=== PATIENT | male | born 1945 | race African-American/Black ===

== ENCOUNTER 2016-09-19 10:26 | Inpatient (IN) ==
[2016-09-19] MEDS ORDERED: SODIUM CHLORIDE 0.9% 1,000 ML IV STA (10:52)
[2016-09-19] MEDS ORDERED: ASPIRIN 300 MG SUPP RECTAL STA (10:52)
--- NOTE | 2016-09-19 11:01 | Emergency Department Note ---
Mesfin Michel Meredith, am scribing for, and in the presence of, Asael Hansen MD 10: 56. Jade Michel James D, MD, personally performed the services described in this documentation, ascribed by Marquita Toure in my presence, and it is both accurate and complete 058 . Arrival - Arrival Chief Complaint: Neuro Stated Complaint: FEEL LIKE HAVING A STROKE ED Nursing Triage Note: PT REPORTS SUDDEN ONSET OF LEFT SIDED NUMBNESS YESTERDAY AT 1999, CAUSING PT TO FALL DOWN. PT STATES NUMBNESS NEVER WENT AWAY. PT USING LEFT ARM/HAND PRIMARILY TO MAKE GESTURES AND TALK AT TRIAGE. NO SLURRED SPEECH OR FACIAL DROOP NOTED. Mode of Arrival: Wheelchair Limitations: No Limitations Source: Patient, Old Records Reviewed, RN Notes Reviewed Time Seen by Provider: 09/19/16 10:46 - History of Present Illness HPI Narrative: Pt is a 70 y/o black male reporting to the ED with c/o sudden onset left-sided weakness/numbness last night at 1999 which caused him to fall. He denies loss of consciousness. Last known well time was 2000 hrs. yesterday. The weakness/ numbness has improved some since last night but is still altering his ambulation , prompting his visit today. He confirms drinking 2-3 18 oz beers daily and drinking whisky 1-2 times a week. Pt has a history of HTN, HLD, and gout. Onset (ago): hour(s) Consistency: constant Severity: moderate Quality: other (weakness and numbness) Allergies/Adverse Reactions: Allergies Allergy/AdvReac Type Severity Reaction Status Date / Time No Known Allergies Allergy Verified 09/19/16 10:39 Review of System - Review of System 12 point system: reviewed and no additional remarkable complaints except as stated - Review of System Neurological: Present: as per HPI, weakness (left-sided), numbness (left-sided) , abnormal gait (due to weakness/numbness) Medical,Surgical,& Family Hx - Medical History Cardio: History of: Hypertension Endocrine: History of: Dyslipidemia Rheumatology: History of;: Gout - Surgical History Thoracic Surgeries: Patient denies;: Lobectomy - Family History Family History: Denies;: Additional Family History - Social History Smoking Status: Current every day smoker Frequency of Alcohol Use: Frequently Type of Drug Use: None Exam Physical Examination: GENERAL: This is a well-nourished, well-developed black male in no apparent distress. VITAL SIGNS: Temperature: 98.4, Pulse: 91, Respirations: 18, Blood pressure: 174 /127, O2 Saturation: 98 HEENT: Head is normocephalic and atraumatic. Pupils are equally round and reactive to light. Extraocular movement are intact. Oropharynx is benign with moist mucous membranes. NECK: Neck is soft and supple without tenderness. There are no masses. There is no lymphadenopathy. LUNGS: Lungs are clear to auscultation bilaterally. Chest rises symmetrically. There is no chest wall tenderness. CV: Heart is regular rate and rhythm without murmurs, rubs, or gallops. ABDOMEN: Abdomen is soft, non-tender to palpation. There are no abnormal masses palpated. There is no organomegaly. Bowel sounds are present and active. SKIN: Skin is warm and dry. No rash. EXTREMITIES: Patient has full range of motion without tenderness. There is no pedal edema. NEUROLOGIC: Awake, alert, and oriented x4. Cranial nerves II through XII are grossly intact. Pt has 2/5 strength in the left arm and 5/5 in the left leg. Some decreased sensation to light touch in the left arm. PSYCHIATRIC: Normal affect. Normal mood. Vital Signs: Vital Signs Temperature 98.4 F 09/19/16 10:33 Pulse Rate 73 09/19/16 11:45 Respiratory Rate 18 09/19/16 11:45 Blood Pressure 189/107 09/19/16 11:45 O2 Sat by Pulse Oximetry 100 09/19/16 11:45 Course - Consultations Consultation #1: Discussed with hospitalist. Patient will be admitted to their service. Time: 12:05 Results - Labs CBC & BMP: 09/19/16 10:52 09/19/16 10:52 Lab Results: I have reviewed the patients labs Labs: Laboratory Tests 09/19/16 09/19/16 10:52 11:06 WBC 6.2 RBC 3.76 L Hgb 11.3 L Hct 33.5 L Plt Count 276 MPV 9.4 L POC Glucose 106 Laboratory Tests 09/19/16 10:52 INR 1.0 PT Patient/Control Mix 10.0 Circ Anticoag PTT 25.2 Laboratory Tests 09/19/16 09/19/16 10:52 10:52 Sodium 145 Potassium 3.8 Chloride 113 H Carbon Dioxide 22 BUN 13 Creatinine 0.80 ALT 15 L Alkaline Phosphatase 133 H Troponin I < 0.015 Globulin 3.6 H Serum Alcohol < 15 L Laboratory Tests 09/19/16 10:52 Urine pH 5.0 Ur Specific [place] 1.012 Urine Urobilinogen < 2.0 H Urine WBC <1 Ur Squamous Epith Cells Occasional Urine Mucus Occasional Laboratory Tests 09/19/16 10:52 Urine Opiates Screen Negative Ur Barbiturates Screen Negative Ur Phencyclidine Scrn Negative U Amphetamine/Methamph Negative U Benzodiazepines Scrn Negative U Cocaine Metab Screen Positive H U Cannabinoids Screen Positive H - EKG EKG results: interpreted by ERMD - Impressions EKG: Normal sinus rhythm with rate of 69, normal ST-T waves, normal axis. - Diagnostic Findings Procedure: Chest x-ray: image reviewed by me (Hyperinflation bilaterally. No cardiomegaly, no infiltrates, no pleural effusions.), CT: image reviewed by me ( CT head: 1.2 x 3 cm area of mass effect left of the falx in the left frontoparietal region most likely extra-axial, most likely a menigioma. ) Disposition Clinical Impression: Stroke, Essential (primary) hypertension, Dyslipidemia, Cocaine abuse, Marijuana abuse, Meningioma Case discussed with: patient Disposition: Still a Patient Condition: Stable Time of Disposition: 12:06
[2016-09-19 11:09] LABS: Basophils % 0.5 % (0.0-0.8); Eosinophils # 0.1 10*3/uL (0.0-0.87); Eosinophils % 1.3 % (0.00-10.9); Hematocrit 33.5 VOL% (42.0-52.0); Hemoglobin 11.3 GM/DL (14.0-18.0); Immature Granulocytes % 0.5 %; Immature Granulocytes Absolute 0.03 #; Lymphocytes # 2.9 10*3/uL (1.4-4.0); Lymphocytes % 46.1 % (21.2-54.2); Mean Corpuscular HGB Conc 33.7 GM/DL (32-36); Mean Corpuscular Hemoglobin 30 PG (27-34); Mean Corpuscular Volume 89.1 FL (87-102); Mean Platelet Volume 9.4 FL (9.6-12.0); Monocytes # 0.4 10*3/uL (0.11-0.8); Monocytes % 6.5 % (1.7-12.7); Neutrophils # 2.8 10*3/uL (1.4-7.4); Neutrophils % 45.1 % (38.7-73.9); Platelet Count 276 10*3/uL (130-400); Red Blood Count 3.76 10*6/uL (3.8-5.5); Red Cell Distribution Width 13.7 % (9.3-17.3); White Blood Count 6.2 10*3/uL (4.5-13.71)
--- NOTE | 2016-09-19 11:13 | EKG Report ---
Stationary ECG Study [facility] ER Test Date: 09/19/2016 11:12:27 AM Pat Name: JOSEMANUEL TORRES Department: Room: Gender: M Copying Machine Repairer: : 1945 Requested by: Asael Mae Order Number: [id number] Reading MD: IRINA LOPEZ Intervals [place] Rate: 69 P: 56 SC: 161 QRS: 33 QRSD: 86 T: 51 QT: 368 QTc: 386 Interpretive Statements SINUS RHYTHM Electronically Signed On 09-19-16 12:15:49 FIELD [employer]Y MANAGER by IRINA LOPEZ [email or web address]
[2016-09-19] MEDS ORDERED: ASPIRIN 300 MG SUPP RECTAL ONE (11:16)
--- NOTE | 2016-09-19 11:16 | CT Report ---
History is hemiparesis The ventricles and the liver size There is a 2 x 3 cm area of soft tissue density and the patchy hyperdensity likely calcification to the left side of the falx anteriorly. This is most likely extra-axial. There may be some minimal adjacent vasogenic edema in the subcortical white matter of the left frontoparietal region. Been no acute hemorrhage or other areas of mass effect seen No acute cortical stroke seen Impression: 1. 2 x 3 cm area of mass effect left of the falx in the left frontoparietal region most likely extra-axial, most likely a meningioma. confirmation with either MRI or any available prior studies is necessary. PROCEDURE INTERPRETED AT [facility] DEPARTMENT OF RADIOLOGY Final Report Signed by: Dr. Larissa Bullard
[2016-09-19 11:19] LABS: Partial Thromboplastin Time 25.2 SECS (0-40)
--- NOTE | 2016-09-19 11:19 | XRay Report ---
History is hemiparesis, cardiomegaly Comparison 01/21/2012 The heart is at the upper range normal in size. Right hilar contours with the rounded density of the spine medially on the right and posteriorly on the lateral film is unchanged likely related to osteophyte. Other large osteophytes present elsewhere No new infiltrates are seen. Impression: Stable appearance of the chest PROCEDURE INTERPRETED AT [facility] DEPARTMENT OF RADIOLOGY Final Report Signed by: Dr. Larissa Bullard
[2016-09-19 11:34] LABS: Alanine Aminotransferase 15 U/L (16-61); Alkaline Phosphatase 133 U/L (45-117); Aspartate Amino Transferase 27 U/L (0-37); Bilirubin,Total < 0.39 MG/DL (0.2-1.0); Blood Urea Nitrogen 13 MG/DL (7-18); Calcium 8.9 MG/DL (8.5-10.1); Glucose 86 MG/DL (74-106); Osmolality,Calculated 286.7 MOS/KG (273-304); Potassium 3.8 MMOL/L (3.5-5.1); Sodium 145 MMOL/L (136-145); Total Protein 7.6 G/DL (6.4-8.3)
[2016-09-19 11:40] LABS: Apearance,Urine CLEAR (Clear); Bilirubin,Urine Negative (Negative); Blood, Urine Negative (Negative); Glucose,Urine (UA) Negative (Negative); Ketones,Urine Negative (Negative); Mucus,Urine Occasional /LPF (Occasional); Nitrite,Urine Negative (Negative); Protein,Urine Negative; Squamous Epithelial Cell,Urine Occasional /HPF (0-10); Urine Color Yellow (Yellow); Urine Specific Gravity 1.012 (1.001-1.035); Urine Urobilinogen < 2.0 EU/DL (0.2-1.0); WBC,Urine <1 /HPF (0-6)
[2016-09-19 11:46] LABS: Barbiturates Screen,Urine Negative (Negative); Benzodiazepines Screen,Urine Negative (Negative); Cannabinoid Screen,Urine Positive (Negative); Opiate Screen,Urine Negative (Negative); Phencyclidine Screen,Urine Negative (Negative)
[2016-09-19] MEDS ORDERED: ACETAMINOPHEN 325 MG TABLET PO PRN (12:23)
[2016-09-19] MEDS ORDERED: ONDANSETRON 4 MG/2 ML VIAL IV PRN (12:23)
[2016-09-19] MEDS ORDERED: LABETALOL 20 MG/4 ML SYRINGE IV PRN (12:23)
--- NOTE | 2016-09-19 12:52 | Hospitalist History & Physical ---
Assessment and Plan - Time spent with patient Time spent with patient: Greater than 30 minutes (due to assessment, plan and documentation.) (1) Stroke Status: Acute Assessment and plan: admit to monitored bed echo, carotid u/s, MRI brain neuro checks ST/PT/OT Consult Case Mgmt for rehab placement Neuro Consultation VTE prophylaxis A1c, lipids, troponin, cbc, bmp, and UDS Labetalol PRN for BP control norvasc 10 mg PO daily started as well Current Visit: Yes (2) Cocaine abuse Status: Acute Current Visit: Yes (3) Dyslipidemia Status: Acute Current Visit: Yes (4) Essential (primary) hypertension Status: Acute Current Visit: Yes (5) Marijuana abuse Status: Acute Current Visit: Yes (6) Meningioma Status: Acute Current Visit: Yes History of Present Illness Chief complaint: left sided weakness. History of present illness: Mr. Montague is a 70 year old male who presented to the ED today with complaints of left sided weakness that began last night about 7-8 pm. He is accompanied by a female family member and she states that last night he was having difficulty speaking, dizziness and severe left sided weakness resulting in a fall. This morning, he continues to be weak on the left side, and states that he has a "tingling" sensation from his waist up. He states that his equilibrium is "off" today. Denies headache or vomiting, but does feel nauseated occasionally. He has a hx of HTN and HLD, but denies a hx of diabetes, CHF or atrial fibrillation. He states that he is supposed to take 1 BP pill in the morning and 1 at night, but that he takes both in the morning. He states that he has been compliant with this. He states that he took his medication this morning. BP at time of interview is 183/100. He smokes 1/3-1/4 of a cigar a day , drinks 3 beers a day and whiskey shots 1-2 days a week. He denies drug use but his UDS is positive for cocaine and marijuana. CT head in ER revealed " no acute hemorrhage, or mass effect, 2x3 cm area of mass effect of the left of the falx in the frontoparietal region , most likely a meningioma". He denies a family hx of CVA, PR, or malignancy, but hx is positive for HTN. He denies a personal hx of CVA, PR, DVT/PE, or malignancy. He will be admitted to a monitored bed for close observation of his rhythm, bedside swallowing eval, neuro checks, VTE prophylaxis, consult Case Management for rehab placement, ST/ PT/OT, Neruo consultation. We will also obtain MRI brain and carotids, as well as an echo. Labs today and in AM. He lives at home and typically functions independently. Further plan and addendum to follow by Dr. Jelena Rolon. Allergies Allergy/AdvReac Type Severity Reaction Status Date / Time No Known Allergies Allergy Verified 09/19/16 10:39 Medical,Surgical,& Family Hx - Medical History Cardio: History of: Hypertension Endocrine: History of: Dyslipidemia Rheumatology: History of;: Gout - Surgical History Thoracic Surgeries: Patient denies;: Lobectomy - Family History Family History: Reports;: Family Hypertension Denies;: Family Cancer, Family Diabetes, Family Heart Disease, Family Stroke , Additional Family History - Social History Smoking Status: Current every day smoker Frequency of Alcohol Use: Frequently Type of Drug Use: Cocaine (UDS +), Marijuana (UDS +) Marital Status: Unknown Lives With:: Alone Functional capacity: independent ambulation - Constitutional Constitutional: Present: weakness. Absent: chills, fatigue, headache(s) - EENT Eyes: Absent: blurry vision, diplopia Ears: Absent: decreased hearing, tinnitus Nose, mouth and throat: Present: vertigo. Absent: dysphagia, headache(s) - Cardiovascular Cardiovascular: Absent: chest pain at rest, dyspnea on exertion, palpitations - Respiratory Respiratory: Absent: cough, dyspnea, hemoptysis - Gastrointestinal Gastrointestinal: Present: nausea. Absent: abdominal pain, melena, vomiting - Genitourinary Genitourinary: Absent: difficulty urinating, hematuria - Musculoskeletal Musculoskeletal: Absent: back pain, joint swelling - Neurological Neurological: Present: disequilibrium, dizziness. Absent: confusion - Psychiatric Psychiatric: Absent: anxiety, confusion, depression - Endocrine Endocrine: Absent: cold intolerance, heat intolerance - Hematologic/Lymphatic Hematologic/Lymphatic: Absent: easy bleeding, easy bruising Exam - Constitutional Vitals: Period Temp Pulse Resp BP Sys/Sheffield Pulse Ox Last 24 Hr 98.4 F 73-91 18-18 174-192/107-127 98-100 General appearance: normal weight, no acute distress - Head Head exam: Present: normal inspection, normocephalic - Eye Eye exam: Present: EOMI. Absent: scleral icterus Pupils: Present: MIKE, normal accommodation - ENT ENT exam: Present: normal exam, normal oropharynx - Neck Neck exam: Present: normal inspection. Absent: lymphadenopathy - Respiratory Respiratory exam: Present: clear to auscultation bilaterally. Absent: accessory muscle use - Cardiovascular Cardiovascular exam: Present: regular rate and rhythm. Absent: carotid bruit - GI/Abdominal GI/Abdominal exam: Present: normal bowel sounds, soft. Absent: tenderness - Extremities Exam Extremities exam: Present: normal inspection. Absent: edema - Back Exam Back exam: Present: normal inspection. Absent: muscle spasm - Neurological Exam Neurological exam: Present: alert, oriented X3, CN II-XII intact, reflexes normal. Absent: motor sensory deficit - Psychiatric Psychiatric exam: Present: normal affect, normal mood - Skin Skin exam: Present: normal color, warm, dry, intact Results - Labs CBC & BMP: 09/19/16 10:52 09/19/16 10:52 Lab Results: I have reviewed the past 24 hour labs - Diagnostic Findings Procedure: Chest x-ray: report reviewed by me (negative), CT: report reviewed by me (2 x 3 cm area of mass effect of the falx in the left frontoparietal region, most likely a meningioma. MRI recommended. ) Quality Measures - VTE Contraindication to Pharmacological VTE Prophylaxis: High Risk of Bleeding - Stroke Onset of Symptoms Date: 09/18/16 Onset of Symptoms Time: 19:00 Symptom Onset Unknown: No
--- NOTE | 2016-09-19 13:35 | Ultrasound Report ---
History is CVA Grayscale, spectral Doppler, and color flow analysis performed and interpreted There is a mild amount of partly soft plaque in both proximal internal carotid arteries Maximum systolic velocities 88 in the right and the 90 on the left Peak systolic ratios of 0.8 on the right and 0.9 left There is antegrade flow in both vertebral arteries Impression: Mild amount of plaque with less than 50% diameter stenoses bilaterally by NASCET criteria PROCEDURE INTERPRETED AT [facility] DEPARTMENT OF RADIOLOGY Final Report Signed by: Dr. Larissa Bullard
[2016-09-19] MEDS ORDERED: LORazepam 2 MG/1 ML VIAL IV PRN (13:55)
[2016-09-19] MEDS: amLODIPine 10 MG TABLET PO SCH (14:50)
[2016-09-19] MEDS: chlordiazePOXIDE 10 MG CAPSULE PO SCH ×3 (14:51→22:08)
[2016-09-19] MEDS: SODIUM CHLORIDE 0.9% 1,000 ML IV SCH (14:57)
[2016-09-19] MEDS: LISINOPRIL 20 MG TABLET PO SCH ×2 (15:16→22:08)
[2016-09-19 15:19] LABS: Cholesterol 112 MG/DL (50-200); HDL Cholesterol 72 MG/DL (40-60); Risk Ratio 1.56; Triglycerides 141 MG/DL (2-150); Troponin I Only < 0.015 NG/ML (0.00-0.045); VLDL CHOLESTEROL 28.2 MG/DL
[2016-09-19] MEDS: ALBUTEROL/IPRATROPIUM 3 ML NEB RESP TX SCH ×2 (16:34→20:12)
--- NOTE | 2016-09-19 16:38 | Event Note ---
pt gone for MRI
--- NOTE | 2016-09-19 16:40 | Magnetic Resonance Report ---
Exam: MR head/brain wo con Date: 09/19/2016 12:30 PM Comparison: None Indication: Stroke question mass Technical: 1.5 Sumi magnet Axial T1 pre-and , ADC, DWI, FLAIR, gradient echo and FSE T2 Sagittal no images obtained. Coronal FSE T2 Contrast:0 cc Dotarem Findings: Exam reveals abnormal ADC/ diffusion imaging involving the high left frontal lobe medially with bright signal on the diffusion imaging and dark signal on the ADC image.. The brainstem, cerebellum exhibit normal signal characteristics. The cerebral hemispheres reveal small vessel changes suspected in the periventricular and subcortical white matter regions also noted. The ventricles or demonstrated without significant enlargement or mass effect. The seventh and eighth cranial nerves and cerebral pontine angles are intact. The pituitary gland, infundibulum and optic chiasm are intact. The paranasal sinuses exhibit inflammation in the left ethmoid air cells. The remaining paranasal sinuses exhibit normal signal characteristics. The mastoid sinuses are unremarkable. The globes and intra-and extraconal spaces are unremarkable. Impression: 1. Infarction involving the high medial left frontal lobe suspected 2. Small vessel ischemic changes. 3. Left ethmoid sinusitis PROCEDURE INTERPRETED AT [facility] DEPARTMENT OF RADIOLOGY Final Report Signed by: Dr. Richar Gimenez
[2016-09-19] MEDS: IBUPROFEN 800 MG TABLET PO PRN (17:22)
[2016-09-19] MEDS ORDERED: LISINOPRIL 20 MG TABLET PO SCH (21:00)
[2016-09-19] MEDS: METOPROLOL TARTRATE 50 MG TABLET PO SCH (22:08)
[2016-09-19] MEDS: GEMFIBROZIL 600 MG TABLET PO SCH (22:08)
[2016-09-20] MEDS: LATANOPROST 0.005% OPH SOLN 2.5 ML BOTTLE BOTH EYES SCH ×2 (01:18→22:04)
[2016-09-20] MEDS: SODIUM CHLORIDE 0.9% 1,000 ML IV SCH ×3 (06:48→20:07)
[2016-09-20] MEDS: ALBUTEROL/IPRATROPIUM 3 ML NEB RESP TX SCH ×4 (07:16→20:45)
[2016-09-20] MEDS: THIAMINE 100 MG TABLET PO SCH (08:30)
[2016-09-20] MEDS: GEMFIBROZIL 600 MG TABLET PO SCH ×2 (08:30→21:58)
[2016-09-20] MEDS: MULTIVITAMIN (CENTRUM) TABLET PO SCH (08:30)
[2016-09-20] MEDS: amLODIPine 10 MG TABLET PO SCH (08:31)
[2016-09-20] MEDS: LISINOPRIL 20 MG TABLET PO SCH (08:31)
[2016-09-20] MEDS: chlordiazePOXIDE 10 MG CAPSULE PO SCH ×4 (08:31→21:59)
[2016-09-20] MEDS: METOPROLOL TARTRATE 50 MG TABLET PO SCH ×2 (08:31→21:58)
[2016-09-20] MEDS: ALLOPURINOL 100 MG TABLET PO SCH (08:31)
[2016-09-20] MEDS: ASPIRIN EC 325 MG TABLET PO SCH (08:31)
[2016-09-20] MEDS: FOLIC ACID 1 MG TABLET PO SCH (08:31)
[2016-09-20] MEDS: PANTOPRAZOLE 40 MG TABLET PO SCH (08:31)
[2016-09-20] MEDS ORDERED: ASPIRIN 300 MG SUPP RECTAL SCH (09:00)
[2016-09-20] MEDS ORDERED: diphenhydrAMINE 50 MG/1 ML VIAL IV ONE (11:10)
[2016-09-20] MEDS: IBUPROFEN 800 MG TABLET PO PRN ×2 (11:17→18:27)
--- NOTE | 2016-09-20 11:19 | Hospitalist Progress Note ---
Assessment and Plan (1) Stroke Status: Acute Assessment and plan: 1)acute stroke- MRI brain with acute stroke in left frontal region, at odds with exam that has left body weakness. His poor balance has resolved her reports , but now has new findings in his face. Dr Rodriguez to see. PT and OT today. Carotids ok. Echo pending. LDL 36, tchol 112. 2)alcohol dependence- on librium, no sign of withdrawal. 3)cocaine and marijuana abuse- he denies thsi, but UDS positive. 4)HTN- BP controlled on Norvasc, lisinopril, metoprolol. Current Visit: Yes (2) Essential (primary) hypertension Status: Acute Current Visit: Yes (3) Dyslipidemia Status: Acute Current Visit: Yes (4) Cocaine abuse Status: Acute Current Visit: Yes (5) Marijuana abuse Status: Acute Current Visit: Yes (6) Meningioma Status: Acute Current Visit: Yes Hospitalist: Subjective Interval history: Mr Montague reported when I was him this morning that he was doing well. His strength had returned to his hand and he thought he would be able to walk today. He would like to go home. His MRI showed high medial left frontal lobe infarct. After I had evaluated him this morning he reported a headache. His nurse thinks his left face is a little swollen and the left side of his top lip. He has received Benadryl and I will reevaluate. He has not had tremors or other alcohol withdrawal symptoms. Exam - Constitutional Vitals: Period Temp Pulse Resp BP Sys/[place] Pulse Ox Last 24 Hr 97.8 F-98.9 F 68-90 16-18 122-184/74-103 97-100 General appearance: normal weight, no acute distress - Head Head exam: Present: normocephalic, atraumatic - Eye Eye exam: Present: EOMI. Absent: scleral icterus Pupils: Present: MIKE - ENT ENT exam: Present: normal exam - Respiratory Respiratory exam: Present: clear to auscultation bilaterally - Cardiovascular Cardiovascular exam: Present: regular rate and rhythm - GI/Abdominal GI/Abdominal exam: Present: normal bowel sounds, soft. Absent: tenderness - Extremities Exam Extremities exam: Absent: edema - Neurological Exam Neurological exam: Present: alert, oriented X3, CN II-XII intact. Absent: motor sensory deficit (testing of strength and sensation in left arm and leg negative in bed- has walked in lyman) - Skin Skin exam: Present: warm, dry Results - Labs CBC & BMP: 09/19/16 10:52 09/19/16 10:52 Lab Results: I have reviewed the past 24 hour labs Quality Measures - VTE Contraindication to Pharmacological VTE Prophylaxis: High Risk of Bleeding - Stroke Onset of Symptoms Date: 09/18/16 Onset of Symptoms Time: 19:00 Symptom Onset Unknown: No
[2016-09-20] MEDS ORDERED: methylPREDNISolone SOD SUC 125 MG/2 ML VIAL IV ONE (11:49)
[2016-09-20] MEDS ORDERED: methylPREDNISolone SOD SUC 125 MG/2 ML VIAL IV SCH (12:00)
[2016-09-20] MEDS: diphenhydrAMINE 50 MG/1 ML VIAL IV SCH ×2 (12:05→18:30)
--- NOTE | 2016-09-20 13:00 | Neurology Consult Note ---
History of Present Illness History of present illness: Mr. Montague is a 70 year old -[place] gentleman who presented to the ED today with complaints of right sided weakness that began the night before the admission about 7-8 pm. A family member states that he was having difficulty speaking, dizziness and severe right sided weakness resulting in a fall. He continued to have some weakness in the right side but he is a lot better. He is able to get up and walk. Denies headache or vomiting, but does feel nauseated occasionally. He has a hx of HTN and HLD, but denies a hx of diabetes , CHF or atrial fibrillation. He states that he is supposed to take 1 BP pill in the morning and 1 at night, but that he takes both in the morning. He states that he has been compliant with this. He states that he took his medication this morning. BP at time of interview is 183/100. He smokes 1/3-1/4 of a cigar a day, drinks 3 beers a day and whiskey shots 1-2 days a week. He denies drug use but his UDS is positive for cocaine and marijuana. CT head in ER revealed no acute abnormality but revealed a small frontoparietal meningioma. MRI of the brain revealed subacute to acute left high parietal infarct. He is also developed left facial swelling which is sudden in onset and likely due to lisinopril. Home Medications Medication Instructions Recorded Confirmed Type Allopurinol 100 mg PO DAILY 09/19/16 09/19/16 History Gemfibrozil 600 mg PO BID 09/19/16 09/19/16 History Ibuprofen 800 mg PO TID PRN 09/19/16 09/19/16 History Latanoprost [Latanoprost 0.005 % 1 drop BOTH EYES BEDTIME 09/19/16 09/19/16 History Oph Soln] Metoprolol Tartrate 50 mg PO BID 09/19/16 09/19/16 History Multivitamin with Minerals [One 1 each PO DAILY 09/19/16 09/19/16 History Daily Plus Minerals] Allergies Allergy/AdvReac Type Severity Reaction Status Date / Time lisinopril [From Prinivil] Allergy Severe Swelling Verified 09/20/16 12:17 of Lip/Tongue/Throat 12 point system: reviewed and no additional remarkable complaints except as stated Medical,Surgical,& Family Hx - Medical History Cardio: History of: Hypertension Endocrine: History of: Dyslipidemia Rheumatology: History of;: Gout Respiratory: History of: Asthma - Surgical History Thoracic Surgeries: Patient denies;: Lobectomy - Family History Family History: Reports;: Family Hypertension Denies;: Family Anesthesia Reaction, Family Cancer, Family Diabetes, Family Heart Disease, Family Hematology, Family Psychiatric Problems, Family Stroke, Additional Family History - Social History Smoking Status: Current every day smoker Frequency of Alcohol Use: Frequently Type of Drug Use: Cocaine, Marijuana Exam - Constitutional Vitals: Period Temp Pulse Resp BP Sys/Sheffield Pulse Ox Last 24 Hr 97.8 F-98.9 F 68-90 16-18 122-184/74-103 97-100 Exam: GENERAL: Patient is in no acute distress. NECK: Neck is supple. There is no JVD. No carotid bruits present. No thyroid masses. CVS: First and second heart sounds are normal. There is no S3 present. Regular rate and rhythm. RESPIRATORY: Lungs are clear to auscultation without any rales or rhonchi. ABDOMEN: Soft and non-tender. Bowel sounds are present. There is no hepatosplenomegaly. EXT: There is no palpable edema. Peripheral pulses are present. Skin: No rashes Central Nervous system: General: Alert, awake and Oriented x 3 Speech: Fluent Comprehension: Intact and normal Facial expressions: Left facial swelling due to end edema Cranial Nerves: CN1/Olfactory: Normal CN II/ Optic: Normal, Visual Mcdonough unreliable CN III, and : MIKE & EOMI CN V: Normal & intact CN VII: face is symmetric CNVIII: Normal CN XI/X/XI/XII: Intact and Normal Motor: Bulk and Tone is normal. Strength in the right 4/5 Strength in the left 5/5 Sensory: Grossly intact for all the modalities of PP, LT and temp sense Reflexes: 1+ and symmetrical Cerebellar function: Normal finger to nose and heel to gomez testing. Gait: Able to get up and walk Results - Labs CBC & BMP: 09/19/16 10:52 09/19/16 10:52 Assessment and Plan (1) Stroke Status: Acute Assessment and plan: Continue aspirin a day. Patient does not need inpatient rehabilitation. Current Visit: Yes (2) Essential (primary) hypertension Status: Acute Assessment and plan: This is quite stable now. Continue current medications. Current Visit: Yes (3) Cocaine abuse Status: Acute Assessment and plan: Counseling done Current Visit: Yes (4) Marijuana abuse Status: Acute Assessment and plan: Counseling done regarding cessation of marijuana use Current Visit: Yes (5) Meningioma Status: Acute Assessment and plan: This is asymptomatic. Current Visit: Yes
--- NOTE | 2016-09-20 14:31 | Consultation ---
Assessment and Plan - Time spent with patient Time spent with patient: Greater than 30 minutes (1) Angioedema Status: Acute Assessment and plan: Clinical exam reveals this is largely isolated to the left maxillofacial soft tissue with no floor of mouth swelling or hardness and no anterior two thirds of the tongue swelling no change in speech or difficulty breathing or swallowing. Bedside laryngoscopy surprisingly revealed a very posterior placed base of tongue with a narrow supraglottic airway with mild to moderate edema though no clinical signs. I discussed this with Dr. Rolon and let her know that I would recommend close observation of this and would have a very short leash for intubation if there is any question of difficulty or progression. I reviewed the medicine and I feel the steroids and Benadryl are completely reasonable additionally we may add Zantac or an H2 ofelia of some sort as that may add some benefit. With his history and comorbidities I do not recommend epi unless the case showed cardiovascular compromise secondary to a worsening or progression of his angioedema. I doubt any of the above will be needed as it seems that this is the peak of the swelling and there should be a steady resolution from this time on. I will sign off on this case but I do remain available if there is any questions or concerns the family sooner than later if there appears to be an airway concerned though I would recommend intubation with any concerns that would be brought up. Current Visit: Yes (2) Left facial swelling Status: Acute Current Visit: Yes History of Present Illness - Data of Consult Patient: new to practice Consult date: 09/20/16 Requesting Physician: Hebert Rodriguez - Consult Narrative Reason for consult: Angioedema History of present illness: Mr. Montague is a 70 year old male who was in the hospital for left-sided weakness and was recently started on lisinopril and developed facial and soft tissue swelling and lisinopril was immediately discontinued and steroids and Benadryl was appropriately started. He is noted no changes or difficulty breathing or swallowing throughout this time and no recollection of any oral tingling or difficulties. ENT is consulted to evaluate CC: Jelena Rolon MD - Home Medications and Allergies Home Medications: Home Medications Medication Instructions Recorded Confirmed Type Allopurinol 100 mg PO DAILY 09/19/16 09/19/16 History Gemfibrozil 600 mg PO BID 09/19/16 09/19/16 History Ibuprofen 800 mg PO TID PRN 09/19/16 09/19/16 History Latanoprost [Latanoprost 0.005 % 1 drop BOTH EYES BEDTIME 09/19/16 09/19/16 History Oph Soln] Metoprolol Tartrate 50 mg PO BID 09/19/16 09/19/16 History Multivitamin with Minerals [One 1 each PO DAILY 09/19/16 09/19/16 History Daily Plus Minerals] Allergies/Adverse Reactions: Allergies Allergy/AdvReac Type Severity Reaction Status Date / Time lisinopril [From Prinivil] Allergy Severe Swelling Verified 09/20/16 12:17 of Lip/Tongue/Throat 12 point system: reviewed and no additional remarkable complaints except as stated Medical,Surgical,& Family Hx - Medical History Cardio: History of: Hypertension Endocrine: History of: Dyslipidemia Rheumatology: History of;: Gout Respiratory: History of: Asthma - Surgical History Thoracic Surgeries: Patient denies;: Lobectomy - Family History Family History: Reports;: Family Hypertension Denies;: Family Anesthesia Reaction, Family Cancer, Family Diabetes, Family Heart Disease, Family Hematology, Family Psychiatric Problems, Family Stroke, Additional Family History - Social History Smoking Status: Current every day smoker Frequency of Alcohol Use: Frequently Type of Drug Use: Cocaine, Marijuana Exam - Constitutional Vitals: Period Temp Pulse Resp BP Sys/[place] Pulse Ox Last 24 Hr 97.8 F-98.9 F 68-91 16-18 122-158/74-90 97-100 General appearance: normal weight, no acute distress - Head Head exam: Present: other (Left sided facial swelling surprisingly isolated to the left side only and predominantly the maxillofacial area consistent with angioedema) - Eye Eye exam: Present: EOMI Pupils: Present: MIKE - ENT ENT exam: Present: normal exam, normal external ear exam, normal oropharynx, other (Bedside laryngoscopy was performed and surprisingly showed a posterior base of tongue with a minimal supraglottic airway secondary to anatomy and mild to moderate edema of the tongue and larynx though the patient reports no difficulty with breathing or swallowing he also has a surprisingly leftward deviated trachea and larynx from an unknown reason and 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) - Neck Neck exam: Present: normal inspection - Respiratory Respiratory exam: Present: other (No tachypnea or difficulty breathing) - GI/Abdominal GI/Abdominal exam: Present: soft - Extremities Exam Extremities exam: Present: normal inspection, normal capillary refill - Neurological Exam Neurological exam: Present: alert, oriented X3, CN II-XII intact - Psychiatric Psychiatric exam: Present: normal affect, normal mood - Skin Skin exam: Present: normal color, warm Results - Labs CBC & BMP: 09/19/16 10:52 09/19/16 10:52 Lab Results: I have reviewed the past 24 hour labs - Diagnostic Findings Procedure: CT: report reviewed by me (No evidence from yesterday CT of an underlying left sinusitis that could be exacerbating or an underlying cause) Quality Measures - VTE Contraindication to Pharmacological VTE Prophylaxis: High Risk of Bleeding - Stroke Onset of Symptoms Date: 09/18/16 Onset of Symptoms Time: 19:00 Symptom Onset Unknown: No
[2016-09-20] MEDS: FAMOTIDINE 20 MG TABLET PO SCH ×2 (18:28→21:58)
--- NOTE | 2016-09-20 22:15 | ECHO Report ---
Rigo Montagueha Exam Date: 09/20/2016 09:35 Referring Physician: Technologist: Mason NOWAK Age: 70 Ht (in): Wt (lb): Gender: M Exam Location: [facility] Echo Indications: weakness, stroke, HTN, dyslipidemia BP: / HR: Rhythm: Sinus Technical Quality: Poor IMPRESSIONS Normal LV systolic function, ejection fraction 65%. Grade 1/4 diastolic dysfunction. Mild concentric left ventricular hypertrophy. Mild mitral and tricuspid regurgitation. MEASUREMENTS (Male / Female) Normal Values 2D ECHO LV Diastolic Diameter PLAX 2.8 cm 4.2 - 5.9 / 3.9 - 5.3 cm LV Systolic Diameter PLAX 2.0 cm LV Fractional Shortening PLAX 29.2 % IVS Diastolic Thickness 1.2 cm 0.6 - 1.0 / 0.6 - 0.9 cm LVPW Diastolic Thickness 1.3 cm 0.6 - 1.0 / 0.6 - 0.9 cm RV Internal Dim ED PLAX 2.4 cm Aortic Root Diameter 2.3 cm LA Systolic Diameter LX 2.9 cm 3.0 - 4.0 / 2.7 - 3.8 cm DOPPLER TR Peak Velocity 189.0 cm/s TR Peak Gradient 14.3 mmHg FINDINGS Left Ventricle Mildly increased septal wall thickness. Mild concentric left ventricular hypertrophy. Left ventricular ejection fraction is estimated at 65%. Right Ventricle Normal right ventricular size. Right Atrium Normal right atrial size. Left Atrium Normal left atrial size. Mitral Valve Mildly thickened mitral valve with mild mitral regurgitation. Aortic Valve Aortic valve sclerosis without stenosis or regurgitation. Tricuspid Valve Morphologically normal tricuspid valve. Mild tricuspid valve regurgitation. Tricuspid regurgitation velocities suggest a PAP of 14.3 mmHg + RAP. Pulmonic Valve Not well seen. Pericardium No pericardial effusion. Aorta Normal size aortic root and proximal ascending aorta. Monica Lee MD (Electronically Signed) Final Date: 20 September 2016 22:14
[2016-09-20] MEDS: methylPREDNISolone SOD SUC 125 MG/2 ML VIAL IV SCH (23:19)
[2016-09-21] MEDS: diphenhydrAMINE 50 MG/1 ML VIAL IV SCH ×2 (00:37→06:11)
[2016-09-21] MEDS: ALBUTEROL/IPRATROPIUM 3 ML NEB RESP TX SCH ×4 (09:00→20:46)
[2016-09-21] MEDS: MULTIVITAMIN (CENTRUM) TABLET PO SCH (09:09)
[2016-09-21] MEDS: THIAMINE 100 MG TABLET PO SCH (09:09)
[2016-09-21] MEDS: amLODIPine 10 MG TABLET PO SCH (09:09)
[2016-09-21] MEDS: ASPIRIN EC 325 MG TABLET PO SCH (09:10)
[2016-09-21] MEDS: chlordiazePOXIDE 10 MG CAPSULE PO SCH ×5 (09:10→21:11)
[2016-09-21] MEDS: METOPROLOL TARTRATE 50 MG TABLET PO SCH ×2 (09:11→21:10)
[2016-09-21] MEDS: GEMFIBROZIL 600 MG TABLET PO SCH ×2 (09:11→21:10)
[2016-09-21] MEDS: FOLIC ACID 1 MG TABLET PO SCH (09:11)
[2016-09-21] MEDS: PANTOPRAZOLE 40 MG TABLET PO SCH (09:12)
[2016-09-21] MEDS: FAMOTIDINE 20 MG TABLET PO SCH ×2 (09:12→21:10)
[2016-09-21] MEDS: ALLOPURINOL 100 MG TABLET PO SCH (09:12)
[2016-09-21] MEDS: IBUPROFEN 800 MG TABLET PO PRN ×2 (09:13→13:09)
[2016-09-21] MEDS: SODIUM CHLORIDE 0.9% 1,000 ML IV SCH ×2 (09:15→17:25)
--- NOTE | 2016-09-21 10:48 | Hospitalist Progress Note ---
Assessment and Plan (1) Angioedema Status: Acute Assessment and plan: Impression: #1. Angioedema, likely drug induced #2. Cerebral infarction #3. Hypertension Plan: It appears that we can move the patient to the floor at this time. We will continue current care otherwise. We discussed medication allergies. May be able to discharge in the next day or so, assuming that he continues to improve. This note was completed using [employer] voice recognition software. There may be tooling engineer errors as a result. Current Visit: Yes Hospitalist: Subjective Interval history: Follow-up angioedema and cerebral infarction. The patient says that the swelling in his lips and cheeks has improved. He denies any dyspnea or change in his voice. He thinks that he is ready to move out to a room. Exam - Constitutional Vitals: Period Temp Pulse Resp BP Sys/Sheffield Pulse Ox Last 24 Hr 98.0 F-99.4 F 79-150 15-23 117-155/63-128 98-100 Blood pressure is adequate. He has some facial edema and edema of the lips. Tongue appears to be normal size. Voice quality is back to baseline. There is no stridor or wheeze. Heart is regular with no murmur or gallop. Lungs are clear with no rales. Results - Labs CBC & BMP: 09/19/16 10:52 09/19/16 10:52 Quality Measures - VTE Contraindication to Pharmacological VTE Prophylaxis: High Risk of Bleeding - Stroke Onset of Symptoms Date: 09/18/16 Onset of Symptoms Time: 19:00 Symptom Onset Unknown: No
--- NOTE | 2016-09-21 11:29 | Progress Note ---
Assessment and Plan (1) Angioedema Status: Acute Assessment and plan: Clinical exam reveals this is largely isolated to the left maxillofacial soft tissue with no floor of mouth swelling or hardness and no anterior two thirds of the tongue swelling no change in speech or difficulty breathing or swallowing. Bedside laryngoscopy surprisingly revealed a very posterior placed base of tongue with a narrow supraglottic airway with mild to moderate edema though no clinical signs. I discussed this with Dr. Rolon and let her know that I would recommend close observation of this and would have a very short leash for intubation if there is any question of difficulty or progression. I reviewed the medicine and I feel the steroids and Benadryl are completely reasonable additionally we may add Zantac or an H2 ofelia of some sort as that may add some benefit. With his history and comorbidities I do not recommend epi unless the case showed cardiovascular compromise secondary to a worsening or progression of his angioedema. I doubt any of the above will be needed as it seems that this is the peak of the swelling and there should be a steady resolution from this time on. I will sign off on this case but I do remain available if there is any questions or concerns the family sooner than later if there appears to be an airway concerned though I would recommend intubation with any concerns that would be brought up. 09/21/2016 The patient's angioedema has progressed to bilateral but overall I would say is lessened and there is been no evidence of oropharyngeal difficulties and 24 hours which is a good sign it is unlikely this will progress much more and I feel that in the near future he would be safe to move to the floor. I will sign off on this case and not continue to follow on the please notify me if there is any continued difficulties or new onset changes or worsening the patient condition. Thank you very much for this consult Current Visit: Yes (2) Left facial swelling Status: Acute Current Visit: Yes Family Medicine PN Sub Interval history: Follow-up from yesterday's angioedema the swelling has advanced to bilateral but decreased some on the left side he has noted no additional oropharyngeal or laryngeal complications which is encouraging. Exam (Progress Note) - Constitutional Vitals: Period Temp Pulse Resp BP Sys/Sheffield Pulse Ox Last 24 Hr 98.0 F-99.4 F 79-150 15-23 117-155/63-128 98-100 General appearance: normal weight, no acute distress - Head Head exam: Present: other (Bilateral soft tissue facial edema consistent with angioedema new onset on the right side decreasing in size and side) - Eye Eye exam: Present: EOMI Pupils: Present: MIKE - ENT ENT exam: Present: normal exam, normal external ear exam, normal oropharynx - Neck Neck exam: Present: normal inspection, other (No swelling noted) - Respiratory Respiratory exam: Present: other (No tachypnea or difficulty breathing) - GI/Abdominal GI/Abdominal exam: Present: soft - Neurological Exam Neurological exam: Present: alert, oriented X3 - Psychiatric Psychiatric exam: Present: normal affect, normal mood - Skin Skin exam: Present: normal color, warm Results - Labs CBC & BMP: 09/19/16 10:52 09/19/16 10:52 Lab Results: I have reviewed the past 24 hour labs Quality Measures - VTE Contraindication to Pharmacological VTE Prophylaxis: High Risk of Bleeding - Stroke Onset of Symptoms Date: 09/18/16 Onset of Symptoms Time: 19:00 Symptom Onset Unknown: No
[2016-09-21] MEDS: methylPREDNISolone SOD SUC 125 MG/2 ML VIAL IV SCH ×2 (11:37→22:44)
[2016-09-21] MEDS: LATANOPROST 0.005% OPH SOLN 2.5 ML BOTTLE BOTH EYES SCH (21:11)
[2016-09-22] MEDS: ALBUTEROL/IPRATROPIUM 3 ML NEB RESP TX SCH ×4 (08:05→19:15)
[2016-09-22] MEDS: amLODIPine 10 MG TABLET PO SCH (09:19)
[2016-09-22] MEDS: PANTOPRAZOLE 40 MG TABLET PO SCH (09:19)
[2016-09-22] MEDS: FAMOTIDINE 20 MG TABLET PO SCH ×2 (09:19→20:02)
[2016-09-22] MEDS: chlordiazePOXIDE 10 MG CAPSULE PO SCH ×4 (09:19→20:02)
[2016-09-22] MEDS: METOPROLOL TARTRATE 50 MG TABLET PO SCH ×2 (09:19→20:01)
[2016-09-22] MEDS: ALLOPURINOL 100 MG TABLET PO SCH (09:19)
[2016-09-22] MEDS: ASPIRIN EC 325 MG TABLET PO SCH (09:19)
[2016-09-22] MEDS: GEMFIBROZIL 600 MG TABLET PO SCH ×2 (09:19→20:01)
[2016-09-22] MEDS: FOLIC ACID 1 MG TABLET PO SCH (09:19)
[2016-09-22] MEDS: MULTIVITAMIN (CENTRUM) TABLET PO SCH (09:19)
[2016-09-22] MEDS: THIAMINE 100 MG TABLET PO SCH (09:19)
[2016-09-22] MEDS: SODIUM CHLORIDE 0.9% 1,000 ML IV SCH (09:20)
[2016-09-22] MEDS: methylPREDNISolone SOD SUC 125 MG/2 ML VIAL IV SCH (10:21)
--- NOTE | 2016-09-22 16:49 | Hospitalist Progress Note ---
Assessment and Plan (1) Angioedema Status: Acute Assessment and plan: Impression: #1. Angioedema, likely drug induced #2. Cerebral infarction #3. Hypertension Plan: I'll add a low-dose of clonidine for his blood pressure. He should be ready for discharge in the morning, assuming that his angioedema continues to improve. This note was completed using [employer] voice recognition software. There may be negative restorer errors as a result. Current Visit: Yes Hospitalist: Subjective Interval history: We're following the patient for cerebral infarction, hypertension, and angioedema from his converting enzyme inhibitor. The patient continues with some facial swelling. He again reports no problems with his upper airway. He is still very concerned about the blood pressure, and continues to complain of a headache. In addition, he reports worsening anxiety and nervousness surrounding the episode. He says that his neurologic symptoms have improved. Exam - Constitutional Vitals: Period Temp Pulse Resp BP Sys/Sheffield Pulse Ox Last 24 Hr 97.6 F-98.5 F 74-103 18-18 134-150/77-91 95-100 Blood pressure looks like it's better. He still has some facial edema, not much different than yesterday. Heart is regular with no murmur or gallop. Lungs are clear with no rales or wheezes. I don't hear any stridor in the upper airway. He is ambulatory in the room. Results - Labs CBC & BMP: 09/19/16 10:52 09/19/16 10:52 Quality Measures - VTE Contraindication to Pharmacological VTE Prophylaxis: High Risk of Bleeding - Stroke Onset of Symptoms Date: 09/18/16 Onset of Symptoms Time: 19:00 Symptom Onset Unknown: No
[2016-09-22] MEDS: cloNIDine 0.1 MG TABLET PO SCH (20:04)
[2016-09-22] MEDS: LATANOPROST 0.005% OPH SOLN 2.5 ML BOTTLE BOTH EYES SCH (20:31)
[2016-09-23] MEDS: SODIUM CHLORIDE 0.9% 1,000 ML IV SCH ×3 (01:16→11:23)
[2016-09-23] MEDS: ALBUTEROL/IPRATROPIUM 3 ML NEB RESP TX SCH ×2 (06:51→10:26)
[2016-09-23] MEDS: ALLOPURINOL 100 MG TABLET PO SCH (09:22)
[2016-09-23] MEDS: chlordiazePOXIDE 10 MG CAPSULE PO SCH (09:22)
[2016-09-23] MEDS: amLODIPine 10 MG TABLET PO SCH (09:22)
[2016-09-23] MEDS: GEMFIBROZIL 600 MG TABLET PO SCH (09:22)
[2016-09-23] MEDS: FAMOTIDINE 20 MG TABLET PO SCH (09:22)
[2016-09-23] MEDS: MULTIVITAMIN (CENTRUM) TABLET PO SCH (09:22)
[2016-09-23] MEDS: ASPIRIN EC 325 MG TABLET PO SCH (09:22)
[2016-09-23] MEDS: PANTOPRAZOLE 40 MG TABLET PO SCH (09:22)
[2016-09-23] MEDS: cloNIDine 0.1 MG TABLET PO SCH (09:22)
[2016-09-23] MEDS: THIAMINE 100 MG TABLET PO SCH (09:22)
[2016-09-23] MEDS: FOLIC ACID 1 MG TABLET PO SCH (09:22)
[2016-09-23] MEDS: METOPROLOL TARTRATE 50 MG TABLET PO SCH (09:52)
--- NOTE | 2016-09-23 11:25 | Discharge Summary ---
Hospital Course - Hospital Course Hospital Course: 70-year-old -[place] male presents to the emergency room with complaints of left-sided weakness. Patient is a known alcoholic and drinks on a daily basis. CT of his head showed a small meningioma that has probably been there for years. Patient was started on an aspirin. MRI shows infarct in the high medial left frontal lobe. Patient is relatively asymptomatic and carotid ultrasound shows less than 50% stenosis. Echocardiogram EF of 65% and no diastolic dysfunction. Patient has chronic COPD and breathing better with duo nebs then with inhalers. Patient had a complicated course as he developed angioedema secondary to lisinopril. This is completely resolved and patient is feeling good. We will taper him off the Librium and give him [place] for as needed back pain. As he is taking ibuprofen 3 times a day. His stomach feels better after being on Protonix. [facility] be [facility] - Time spent with patient Time with patient DS: Less than 30 minutes Discharge Plan - Discharge Data Disposition: Disch To Home/Self Care Condition at Discharge: Stable Discharge Diet: heart healthy Activity: resume usual activities as tolerated Hygiene: no restrictions Weight Bearing at Discharge: full weight bearing Driving: other (no driving while on librium or norco) - Discharge Medications New Folic Acid Tab 1 mg PO DAILY tablet Pantoprazole Tab [Protonix Tab] 40 mg PO DAILY #30 tablet Thiamine Tab [Vitamin B1 Tab] 100 mg PO DAILY tablet amLODIPine [Norvasc] 10 mg PO DAILY #30 tablet cloNIDine TAB [Catapres Tab] 0.1 mg PO BID #60 tablet Albuterol/Ipratropium Neb [Duoneb] 3 ml RESP TX TID #90 nebulization solution HYDROcodone/ACETAMIN 5-325 [[place] 5-325] 1 tablet PO Q6H PRN #20 tablet PRN Reason: Pain Moderate (4-7) chlordiazePOXIDE [Librium] 10 mg PO DAILY #6 capsule Aspirin EC Tab 325 mg PO DAILY #30 tablet Continue Latanoprost [Latanoprost 0.005 % Oph Soln] 1 drop BOTH EYES BEDTIME Allopurinol 100 mg PO DAILY Gemfibrozil 600 mg PO BID Multivitamin with Minerals [One Daily Plus Minerals] 1 each PO DAILY Metoprolol Tartrate 50 mg PO BID Discontinued Ibuprofen 800 mg PO TID PRN PRN Reason: Pain - Follow Up or Referral Follow Up: Dr. Wendi [Other] - 2 Weeks - Forms/Instructions Exam - Constitutional Vitals: Period Temp Pulse Resp BP Sys/Sheffield Pulse Ox Last 24 Hr 97.5 F-98.5 F 71-90 8-23 123-150/72-97 98-100 Exam: Heart Rate-[RRR] Lungs-[CTAB] Abd-[+bs soft, NT] Ext-[no edema] Tongue no edema or facial swelling DS: Provider Date of admission: 09/19/16 12:10 Primary care physician: . No PCP Attending physician on admission: Jelena Rolon MD Consults: 09/19/16 12:23 Consult to Case Mgmt/Social Srvs [CONS] Routine Reason for Case Mgmt/Social Srvs: Discharge Planning Consult to Occupational Therapy [CONS] Routine Reason for Occupational Therapy: Evaluate and Treat Consult Comment: Stroke Consult to Physical Therapy [CONS] Routine Reason for Physical Therapy: Evaluate and Treat Consult Comment: stroke Consult to Physician [CONS] Routine Comment: stroke Consulting Provider: Hebert Rodriguez Person Notified: Dr. Rodriguez Date Notified: 09/19/16 Time Notified: 14:29 Consult Notification Comment: 09/19/16 14:03 Consult to Pharmacy [CONS] Routine Reason for Pharmacy Consult: Adjust Meds Renal Funct 09/20/16 12:45 Consult to Physician [CONS] Routine Comment: Consulting Provider: Darrell Martinez Person Notified: Dr. Martinez Date Notified: 09/20/16 Time Notified: 12:53 Discharging clinician: Lluvia Felix MD
[2016-09-23 11:45] VITALS: BP 134/87
== END 2016-09-23 12:40 | disposition home or self-care (01) | DRG 65 ==
LOC: N.ED 10:26 → N.EDINP 12:10 → SUATTDRO 12:10 → N.EDINP 13:40 → N.5E 13:55 → N.CC 09-20 15:59 → N.5E 09-21 12:35
PROVIDERS: ADMIT Internal Medicine; ATTEND Internal Medicine Geriatric Medicine

== ENCOUNTER 2020-09-25 05:46 | Inpatient (IN) ==
[2020-09-20 12:33] LABS: Basophils % 0.4 % (0.0-0.8); Eosinophils # 0.1 10*3/uL (0.0-0.87); Eosinophils % 0.7 % (0.00-10.9); Hematocrit 33.2 VOL% (42.0-52.0); Hemoglobin 9.9 GM/DL (14.0-18.0); Immature Granulocytes % 1.4 %; Immature Granulocytes Absolute 0.13 #; Lymphocytes # 3.7 10*3/uL (1.4-4.0); Lymphocytes % 41.3 % (21.2-54.2); Mean Corpuscular HGB Conc 29.8 GM/DL (32-36); Mean Corpuscular Volume 90.7 FL (87-102); Mean Platelet Volume 9.3 FL (9.6-12.0); Monocytes % 6.4 % (1.7-12.7); Neutrophils % 49.8 % (38.7-73.9); Platelet Count 555 T/CUMM (130-400); Red Blood Count 3.66 MC/CUMM (3.8-5.5); Red Cell Distribution Width 15.9 % (9.3-17.3)
[2020-09-20 12:56] LABS: Calcium 9.7 MG/DL (8.5-10.1); Potassium 4.3 MMOL/L (3.5-5.1)
[2020-09-20 13:21] LABS: Eosinophils 1 % (0-10); Lymphocytes 44 % (20-55); Segmented Neutrophils 47 % (50-85); Total Cells Counted 100
[2020-09-20 13:22] LABS: Anisocytosis 1+; Hypochromasia 1+; Platelet Estimate Adequate; Polychromasia Few; Target Cells Few
[2020-09-20 13:41] LABS: Sedimentation Rate-Westergren 82 MM/HR (0-20)
[2020-09-25] MEDS ORDERED: LACTATED RINGERS 1,000 ML IV SCH (06:00)
[2020-09-25] MEDS ORDERED: ceFAZolin 2,000 MG in PREMIX 1 EACH IV ONE (06:30)
[2020-09-25] MEDS ORDERED: FAMOTIDINE 20 MG TABLET PO ONE (06:54)
[2020-09-25] MEDS ORDERED: GABAPENTIN 400 MG CAPSULE PO ONE (06:54)
[2020-09-25] MEDS ORDERED: ACETAMINOPHEN 500 MG TABLET PO ONE (06:54)
[2020-09-25] MEDS ORDERED: ALBUTEROL 2.5 MG/3 ML NEB RESP TX ONE (06:54)
[2020-09-25] MEDS ORDERED: BUPIVACAINE MPF 0.25% 30 ML VIAL ONE (09:28)
[2020-09-25 09:51] LABS: Bilirubin,Urine Negative (Negative); Blood, Urine Negative (Negative); Calcium Oxalate Crystals,Urine Occasional /HPF (Few); Glucose,Urine (UA) Negative (Negative); Ketones,Urine Negative (Negative); Mucus,Urine Occasional /LPF (Occasional); Nitrite,Urine Negative (Negative); Protein,Urine 30 MG/DL; RBC,Urine 2 /HPF (0-4); Squamous Epithelial Cell,Urine Occasional /HPF (0-10); Urine Appearance CLEAR (Clear); Urine Color Yellow (Yellow); Urine Specific Gravity 1.026 (1.001-1.035); Urine Urobilinogen < 2.0 EU/DL (0.2-1.0); WBC,Urine <1 /HPF (0-6)
[2020-09-25] MEDS ORDERED: fentaNYL 100 MCG/2 ML VIAL ONE (10:06)
[2020-09-25] MEDS ORDERED: ONDANSETRON 4 MG/2 ML VIAL IV PRN ×2 (10:11→13:25)
[2020-09-25] MEDS ORDERED: MAGNESIUM HYDROXIDE SUSP 30 ML UDCUP PO PRN (10:11)
[2020-09-25] MEDS ORDERED: MORPHINE 4 MG/1 ML VIAL IV PRN ×2 (10:11)
[2020-09-25] MEDS ORDERED: VANCOMYCIN 1,000 MG VIAL ONE ×2 (10:14→10:19)
[2020-09-25] MEDS ORDERED: TOBRAMYCIN 1.2 GM VIAL TOP ONE ×2 (10:14→10:19)
[2020-09-25] MEDS ORDERED: PHENYLEPHRINE 10 MG/1 ML VIAL IV ONE (11:00)
[2020-09-25 11:23] LABS: Bacteria,Urine Occasional /HPF (Few); Bilirubin,Urine Negative (Negative); Blood, Urine Negative (Negative); Glucose,Urine (UA) Negative (Negative); Ketones,Urine Negative (Negative); Mucus,Urine Occasional /LPF (Occasional); Nitrite,Urine Negative (Negative); Protein,Urine Negative; RBC,Urine 6 /HPF (0-4); Squamous Epithelial Cell,Urine Occasional /HPF (0-10); Urine Appearance CLEAR (Clear); Urine Color Yellow (Yellow); Urine Specific Gravity 1.028 (1.001-1.035); Urine Urobilinogen < 2.0 EU/DL (0.2-1.0); WBC,Urine <1 /HPF (0-6)
[2020-09-25] MEDS ORDERED: ALBUMIN 5% 12.5 GM/250 ML VIAL IV ONE (12:09)
[2020-09-25] MEDS ORDERED: ePHEDrine 50 MG/ML VIAL ONE (12:32)
[2020-09-25] MEDS ORDERED: FUROSEMIDE 20 MG/2 ML VIAL IV PRN (12:40)
[2020-09-25] MEDS ORDERED: SODIUM CHLORIDE 0.9% 1,000 ML IV PRN (12:40)
[2020-09-25 12:54] LABS: Hematocrit 22.2 VOL% (42.0-52.0)
[2020-09-25 12:56] LABS: Hemoglobin 7.2 GM/DL (14.0-18.0)
[2020-09-25] MEDS ORDERED: SODIUM CHLORIDE 0.9% 250 ML IV ONE (13:10)
[2020-09-25] MEDS ORDERED: DEXAMETHASONE 4 MG/1 ML VIAL ONE (13:10)
[2020-09-25] MEDS ORDERED: PHENYLEPHRINE 1 MG/10 ML SYRINGE IV ONE (13:10)
[2020-09-25] MEDS ORDERED: propofoL 200 MG/20 ML VIAL IV ONE (13:10)
[2020-09-25] MEDS ORDERED: ROCURONIUM 50 MG/5 ML VIAL IV ONE (13:10)
[2020-09-25] MEDS ORDERED: ONDANSETRON 4 MG/2 ML VIAL ONE (13:10)
[2020-09-25] MEDS ORDERED: LIDOCAINE 2% 5 ML VIAL ONE (13:10)
[2020-09-25] MEDS ORDERED: TRANEXAMIC ACID 1,000 MG/10 ML VIAL ONE (13:10)
[2020-09-25] MEDS ORDERED: LACTATED RINGERS 1,000 ML IV ONE (13:10)
[2020-09-25] MEDS ORDERED: SEVOFLURANE 1 UNIT/15 MINUTE INH ONE (13:11)
[2020-09-25] MEDS ORDERED: HYDROmorphone 2 MG/1 ML VIAL ONE (13:27)
[2020-09-25] MEDS: HYDROmorphone 2 MG/1 ML VIAL IV PRN ×2 (13:30→14:30)
[2020-09-25] MEDS ORDERED: SODIUM CHLORIDE 0.9% 500 ML IV ONE (15:29)
[2020-09-25] MEDS: LACTATED RINGERS 1,000 ML IV SCH (15:58)
[2020-09-25] MEDS: LORazepam 1 MG TABLET PO SCH ×2 (17:43→21:59)
[2020-09-25] MEDS: KETOROLAC 15 MG/1 ML VIAL IV SCH (17:46)
[2020-09-25] MEDS: DORZOLAMIDE/TIMOLOL OPH SOLN 10 ML BOTTLE BOTH EYES SCH ×2 (17:51→22:00)
[2020-09-25] MEDS: BRIMONIDINE 0.2% OPH SOLN 5 ML BOTTLE BOTH EYES SCH ×2 (17:51→22:00)
[2020-09-25] MEDS: OXACILLIN 2,000 MG in SODIUM CHLORIDE 0.9% 100 ML IV SCH (19:56)
[2020-09-25] MEDS: DOCUSATE SODIUM 100 MG CAPSULE PO SCH (21:59)
[2020-09-25] MEDS: GABAPENTIN 300 MG CAPSULE PO SCH (21:59)
[2020-09-25] MEDS: CYPROHEPTADINE 4 MG TABLET PO SCH (22:00)
[2020-09-25] MEDS: METOPROLOL TARTRATE 50 MG TABLET PO SCH (22:00)
[2020-09-25] MEDS: LATANOPROST 0.005% OPH SOLN 2.5 ML BOTTLE BOTH EYES SCH (22:00)
[2020-09-25] MEDS: MAGNESIUM OXIDE 400 MG TABLET PO SCH (22:00)
[2020-09-25] MEDS: levETIRAcetam 500 MG TABLET PO SCH (22:00)
[2020-09-26] MEDS: KETOROLAC 15 MG/1 ML VIAL IV SCH ×5 (01:24→18:04)
[2020-09-26] MEDS: LACTATED RINGERS 1,000 ML IV SCH ×3 (02:00→15:30)
[2020-09-26] MEDS: OXACILLIN 2,000 MG in SODIUM CHLORIDE 0.9% 100 ML IV SCH ×4 (02:01→18:07)
[2020-09-26 05:07] LABS: Basophils % 0.2 % (0.0-0.8); Eosinophils % 0.1 % (0.00-10.9); Hematocrit 25.3 VOL% (42.0-52.0); Hemoglobin 8.1 GM/DL (14.0-18.0); Immature Granulocytes Absolute 0.13 #; Lymphocytes # 3.7 10*3/uL (1.4-4.0); Lymphocytes % 28.4 % (21.2-54.2); Mean Platelet Volume 9.1 FL (9.6-12.0); Monocytes % 4.4 % (1.7-12.7); Neutrophils % 65.9 % (38.7-73.9); Platelet Count 320 T/CUMM (130-400); Red Blood Count 2.81 MC/CUMM (3.8-5.5); Red Cell Distribution Width 15.9 % (9.3-17.3); White Blood Count 12.9 T/CUMM (4-12)
[2020-09-26 05:26] LABS: Calcium 7.5 MG/DL (8.5-10.1); Osmolality,Calculated 273.7 MOS/KG (273-304); Potassium 3.9 MMOL/L (3.5-5.1)
[2020-09-26 05:36] LABS: Hypochromasia 1+; Microcytosis 1+; Ovalocytes Slight; Platelet Estimate Adequate
[2020-09-26] MEDS ORDERED: SODIUM CHLORIDE 0.9% 1,000 ML IV PRN (06:59)
[2020-09-26] MEDS ORDERED: FUROSEMIDE 20 MG/2 ML VIAL IV PRN (06:59)
[2020-09-26] MEDS: LORazepam 1 MG TABLET PO SCH ×3 (09:25→22:21)
[2020-09-26] MEDS: DOCUSATE SODIUM 100 MG CAPSULE PO SCH ×2 (09:25→22:21)
[2020-09-26] MEDS: MULTIVITAMIN (BEROCCA) TABLET PO SCH (09:25)
[2020-09-26] MEDS: FOLIC ACID 1 MG TABLET PO SCH (09:26)
[2020-09-26] MEDS: levETIRAcetam 500 MG TABLET PO SCH ×2 (09:26→22:21)
[2020-09-26] MEDS: gemfibroziL 600 MG TABLET PO SCH (09:26)
[2020-09-26] MEDS: GABAPENTIN 300 MG CAPSULE PO SCH ×2 (09:27→22:21)
[2020-09-26] MEDS: MAGNESIUM OXIDE 400 MG TABLET PO SCH ×2 (09:27→22:21)
[2020-09-26] MEDS: PANTOPRAZOLE 40 MG TABLET PO SCH (09:28)
[2020-09-26] MEDS: CYPROHEPTADINE 4 MG TABLET PO SCH ×3 (09:28→22:21)
[2020-09-26] MEDS: THIAMINE 100 MG TABLET PO SCH (09:29)
[2020-09-26] MEDS: allopurinoL 100 MG TABLET PO SCH (09:29)
[2020-09-26] MEDS ORDERED: BENZOCAINE/MENTHOL LOZENGE 18/BOX PO PRN (10:02)
[2020-09-26] MEDS: BRIMONIDINE 0.2% OPH SOLN 5 ML BOTTLE BOTH EYES SCH ×3 (10:34→22:22)
[2020-09-26] MEDS: DORZOLAMIDE/TIMOLOL OPH SOLN 10 ML BOTTLE BOTH EYES SCH ×3 (10:34→22:22)
[2020-09-26] MEDS: METOPROLOL TARTRATE 50 MG TABLET PO SCH (12:01)
[2020-09-26] MEDS: LATANOPROST 0.005% OPH SOLN 2.5 ML BOTTLE BOTH EYES SCH (22:22)
[2020-09-27] MEDS: OXACILLIN 2,000 MG in SODIUM CHLORIDE 0.9% 100 ML IV SCH ×4 (01:14→17:55)
[2020-09-27 01:26] LABS: Hematocrit 32.7 VOL% (42.0-52.0)
[2020-09-27] MEDS: METOPROLOL TARTRATE 50 MG TABLET PO SCH ×3 (02:28→23:10)
[2020-09-27] MEDS: LACTATED RINGERS 1,000 ML IV SCH ×4 (05:10→23:13)
[2020-09-27 08:04] LABS: Basophils % 0.1 % (0.0-0.8); Eosinophils % 0.2 % (0.00-10.9); Hematocrit 33.5 VOL% (42.0-52.0); Hemoglobin 10.9 GM/DL (14.0-18.0); Immature Granulocytes % 0.8 %; Immature Granulocytes Absolute 0.17 #; Lymphocytes # 2.7 10*3/uL (1.4-4.0); Lymphocytes % 13.3 % (21.2-54.2); Mean Corpuscular HGB Conc 32.5 GM/DL (32-36); Mean Corpuscular Volume 89.6 FL (87-102); Mean Platelet Volume 9.2 FL (9.6-12.0); Monocytes % 1.6 % (1.7-12.7); Platelet Count 356 T/CUMM (130-400); Red Blood Count 3.74 MC/CUMM (3.8-5.5); Red Cell Distribution Width 15.6 % (9.3-17.3); White Blood Count 20.5 T/CUMM (4-12)
[2020-09-27 08:24] LABS: Lymphocytes 13 % (20-55); Platelet Estimate Adequate; Segmented Neutrophils 87 % (50-85); Total Cells Counted 100
[2020-09-27 08:25] LABS: Hypochromasia 1+; Microcytosis 1+
[2020-09-27] MEDS: MULTIVITAMIN (BEROCCA) TABLET PO SCH (09:00)
[2020-09-27] MEDS: DOCUSATE SODIUM 100 MG CAPSULE PO SCH ×2 (09:00→22:16)
[2020-09-27] MEDS: LORazepam 1 MG TABLET PO SCH ×3 (09:00→22:16)
[2020-09-27] MEDS: BRIMONIDINE 0.2% OPH SOLN 5 ML BOTTLE BOTH EYES SCH ×3 (09:00→22:17)
[2020-09-27] MEDS: DORZOLAMIDE/TIMOLOL OPH SOLN 10 ML BOTTLE BOTH EYES SCH ×3 (09:01→22:17)
[2020-09-27] MEDS: FOLIC ACID 1 MG TABLET PO SCH (09:01)
[2020-09-27] MEDS: gemfibroziL 600 MG TABLET PO SCH (09:01)
[2020-09-27] MEDS: levETIRAcetam 500 MG TABLET PO SCH ×2 (09:01→22:15)
[2020-09-27] MEDS: MAGNESIUM OXIDE 400 MG TABLET PO SCH ×2 (09:02→22:16)
[2020-09-27] MEDS: PANTOPRAZOLE 40 MG TABLET PO SCH (09:02)
[2020-09-27] MEDS: CYPROHEPTADINE 4 MG TABLET PO SCH ×3 (09:02→22:16)
[2020-09-27] MEDS: GABAPENTIN 300 MG CAPSULE PO SCH ×2 (09:02→22:21)
[2020-09-27] MEDS: allopurinoL 100 MG TABLET PO SCH (09:02)
[2020-09-27] MEDS: THIAMINE 100 MG TABLET PO SCH (09:02)
[2020-09-27] MEDS ORDERED: LIDOCAINE 2% 5 ML VIAL ONE (09:16)
[2020-09-27] MEDS ORDERED: SUCCINYLCHOLINE 200 MG/10 ML VIAL ONE (09:16)
[2020-09-27] MEDS ORDERED: fentaNYL 100 MCG/2 ML VIAL ONE (09:16)
[2020-09-27] MEDS ORDERED: ROCURONIUM 50 MG/5 ML VIAL IV ONE (09:16)
[2020-09-27] MEDS ORDERED: ETOMIDATE 40 MG/20 ML VIAL IV ONE (09:16)
[2020-09-27] MEDS ORDERED: SODIUM CHLORIDE 0.9% 1,000 ML IV PRN ×2 (09:25→12:00)
[2020-09-27] MEDS ORDERED: LACTATED RINGERS 1,000 ML IV SCH (09:30)
[2020-09-27] MEDS ORDERED: ALBUMIN 5% 12.5 GM/250 ML VIAL IV ONE (09:31)
[2020-09-27] MEDS ORDERED: SODIUM CHLORIDE 0.9% 1,000 ML IV ONE (10:12)
[2020-09-27] MEDS ORDERED: propofoL 200 MG/20 ML VIAL IV ONE (10:12)
[2020-09-27] MEDS ORDERED: CALCIUM CHLORIDE 1,000 MG/10 ML VIAL IV ONE (10:12)
[2020-09-27] MEDS ORDERED: METOPROLOL TARTRATE 5 MG/5 ML VIAL IV ONE (10:21)
[2020-09-27] MEDS ORDERED: ESMOLOL 100 MG/10 ML VIAL IV ONE (10:21)
[2020-09-27] MEDS ORDERED: TRANEXAMIC ACID 1,000 MG/10 ML VIAL ONE (10:32)
[2020-09-27] MEDS ORDERED: PHENYLEPHRINE 1 MG/10 ML SYRINGE IV ONE (11:06)
[2020-09-27] MEDS ORDERED: GLYCOPYRROLATE 0.4 MG/2 ML VIAL ONE (11:45)
[2020-09-27] MEDS ORDERED: NEOSTIGMINE 10 MG/10 ML VIAL ONE (11:45)
[2020-09-27] MEDS ORDERED: SEVOFLURANE 1 UNIT/15 MINUTE INH ONE (11:53)
[2020-09-27 13:06] LABS: Basophils % 0.2 % (0.0-0.8); Eosinophils # 0.1 10*3/uL (0.0-0.87); Eosinophils % 0.3 % (0.00-10.9); Hematocrit 29.7 VOL% (42.0-52.0); Hemoglobin 9.5 GM/DL (14.0-18.0); Immature Granulocytes % 0.5 %; Immature Granulocytes Absolute 0.09 #; Lymphocytes # 3.5 10*3/uL (1.4-4.0); Lymphocytes % 21.1 % (21.2-54.2); Mean Corpuscular Volume 89.7 FL (87-102); Mean Platelet Volume 8.9 FL (9.6-12.0); Monocytes % 1.8 % (1.7-12.7); Neutrophils % 76.1 % (38.7-73.9); Platelet Count 304 T/CUMM (130-400); Red Blood Count 3.31 MC/CUMM (3.8-5.5); Red Cell Distribution Width 15.6 % (9.3-17.3); White Blood Count 16.5 T/CUMM (4-12)
[2020-09-27] MEDS: KETOROLAC 30 MG/1 ML VIAL IV SCH ×2 (14:36→17:55)
[2020-09-27 17:58] LABS: Hematocrit 28.1 VOL% (42.0-52.0); Hemoglobin 9.1 GM/DL (14.0-18.0)
[2020-09-27] MEDS: LATANOPROST 0.005% OPH SOLN 2.5 ML BOTTLE BOTH EYES SCH (22:21)
[2020-09-28] MEDS: OXACILLIN 2,000 MG in SODIUM CHLORIDE 0.9% 100 ML IV SCH ×4 (02:06→17:39)
[2020-09-28] MEDS: KETOROLAC 30 MG/1 ML VIAL IV SCH ×2 (02:07→06:11)
[2020-09-28 05:40] LABS: Basophils % 0.3 % (0.0-0.8); Eosinophils # 0.1 10*3/uL (0.0-0.87); Eosinophils % 0.9 % (0.00-10.9); Hematocrit 22.8 VOL% (42.0-52.0); Hemoglobin 7.3 GM/DL (14.0-18.0); Immature Granulocytes % 0.6 %; Immature Granulocytes Absolute 0.08 #; Lymphocytes % 23.8 % (21.2-54.2); Mean Corpuscular Volume 90.1 FL (87-102); Monocytes % 2.9 % (1.7-12.7); Neutrophils % 71.5 % (38.7-73.9); Platelet Count 310 T/CUMM (130-400); Red Blood Count 2.53 MC/CUMM (3.8-5.5); Red Cell Distribution Width 15.6 % (9.3-17.3); White Blood Count 12.7 T/CUMM (4-12)
[2020-09-28 05:59] LABS: Calcium 8.1 MG/DL (8.5-10.1); Osmolality,Calculated 276.4 MOS/KG (273-304); Potassium 3.6 MMOL/L (3.5-5.1)
[2020-09-28] MEDS: FONDAPARINUX 2.5 MG/0.5 ML SYRINGE SUBCUT SCH (06:11)
[2020-09-28 06:41] LABS: Lymphocytes 18 % (20-55); Platelet Estimate Normal; Segmented Neutrophils 80 % (50-85); Total Cells Counted 100
[2020-09-28] MEDS: PANTOPRAZOLE 40 MG TABLET PO SCH (08:38)
[2020-09-28] MEDS: MAGNESIUM OXIDE 400 MG TABLET PO SCH ×2 (08:39→22:14)
[2020-09-28] MEDS: DOCUSATE SODIUM 100 MG CAPSULE PO SCH ×2 (08:39→22:14)
[2020-09-28] MEDS: LORazepam 1 MG TABLET PO SCH ×2 (08:39→22:45)
[2020-09-28] MEDS: CYPROHEPTADINE 4 MG TABLET PO SCH ×3 (08:39→22:14)
[2020-09-28] MEDS: MULTIVITAMIN (BEROCCA) TABLET PO SCH (08:40)
[2020-09-28] MEDS: gemfibroziL 600 MG TABLET PO SCH (08:40)
[2020-09-28] MEDS: allopurinoL 100 MG TABLET PO SCH (08:40)
[2020-09-28] MEDS: METOPROLOL TARTRATE 50 MG TABLET PO SCH ×2 (08:40→22:15)
[2020-09-28] MEDS: THIAMINE 100 MG TABLET PO SCH (08:41)
[2020-09-28] MEDS: FOLIC ACID 1 MG TABLET PO SCH (08:41)
[2020-09-28] MEDS: DORZOLAMIDE/TIMOLOL OPH SOLN 10 ML BOTTLE BOTH EYES SCH ×3 (08:41→22:15)
[2020-09-28] MEDS: levETIRAcetam 500 MG TABLET PO SCH ×2 (08:41→22:14)
[2020-09-28] MEDS: GABAPENTIN 300 MG CAPSULE PO SCH ×2 (08:41→22:15)
[2020-09-28] MEDS: BRIMONIDINE 0.2% OPH SOLN 5 ML BOTTLE BOTH EYES SCH ×3 (08:41→22:15)
[2020-09-28 15:32] LABS: Hematocrit 34.6 VOL% (42.0-52.0); Hemoglobin 11.2 GM/DL (14.0-18.0)
[2020-09-28] MEDS: LATANOPROST 0.005% OPH SOLN 2.5 ML BOTTLE BOTH EYES SCH (22:15)
[2020-09-29] MEDS: OXACILLIN 2,000 MG in SODIUM CHLORIDE 0.9% 100 ML IV SCH ×4 (00:44→18:01)
[2020-09-29] MEDS: FONDAPARINUX 2.5 MG/0.5 ML SYRINGE SUBCUT SCH (06:15)
[2020-09-29 06:58] LABS: Basophils % 0.3 % (0.0-0.8); Eosinophils # 0.1 10*3/uL (0.0-0.87); Hematocrit 31.2 VOL% (42.0-52.0); Immature Granulocytes % 0.7 %; Lymphocytes # 2.9 10*3/uL (1.4-4.0); Lymphocytes % 21.3 % (21.2-54.2); Mean Corpuscular HGB Conc 32.1 GM/DL (32-36); Mean Corpuscular Volume 91.5 FL (87-102); Mean Platelet Volume 9.6 FL (9.6-12.0); Monocytes % 2.7 % (1.7-12.7); Platelet Count 364 T/CUMM (130-400); Red Blood Count 3.41 MC/CUMM (3.8-5.5); Red Cell Distribution Width 14.7 % (9.3-17.3); White Blood Count 13.5 T/CUMM (4-12)
[2020-09-29 07:25] LABS: Calcium 7.6 MG/DL (8.5-10.1); Osmolality,Calculated 279.1 MOS/KG (273-304); Potassium 3.7 MMOL/L (3.5-5.1)
[2020-09-29] MEDS: DORZOLAMIDE/TIMOLOL OPH SOLN 10 ML BOTTLE BOTH EYES SCH ×3 (10:49→21:08)
[2020-09-29] MEDS: MULTIVITAMIN (BEROCCA) TABLET PO SCH (10:50)
[2020-09-29] MEDS: BRIMONIDINE 0.2% OPH SOLN 5 ML BOTTLE BOTH EYES SCH ×3 (10:50→21:07)
[2020-09-29] MEDS: levETIRAcetam 500 MG TABLET PO SCH ×2 (10:51→20:57)
[2020-09-29] MEDS: LORazepam 0.5 MG TABLET PO SCH ×2 (10:51→21:01)
[2020-09-29] MEDS: DOCUSATE SODIUM 100 MG CAPSULE PO SCH ×2 (10:51→20:56)
[2020-09-29] MEDS: CYPROHEPTADINE 4 MG TABLET PO SCH ×3 (10:51→20:59)
[2020-09-29] MEDS: MAGNESIUM OXIDE 400 MG TABLET PO SCH ×2 (10:51→20:58)
[2020-09-29] MEDS: gemfibroziL 600 MG TABLET PO SCH (10:51)
[2020-09-29] MEDS: allopurinoL 100 MG TABLET PO SCH (10:52)
[2020-09-29] MEDS: METOPROLOL TARTRATE 50 MG TABLET PO SCH ×2 (10:52→20:58)
[2020-09-29] MEDS: PANTOPRAZOLE 40 MG TABLET PO SCH (10:52)
[2020-09-29] MEDS: GABAPENTIN 300 MG CAPSULE PO SCH ×2 (10:52→21:01)
[2020-09-29] MEDS: LATANOPROST 0.005% OPH SOLN 2.5 ML BOTTLE BOTH EYES SCH (21:09)
[2020-09-30] MEDS: OXACILLIN 2,000 MG in SODIUM CHLORIDE 0.9% 100 ML IV SCH ×4 (00:09→17:59)
[2020-09-30 05:59] LABS: Basophils # 0.1 10*3/uL (0.0-0.2); Basophils % 0.6 % (0.0-0.8); Eosinophils # 0.2 10*3/uL (0.0-0.87); Eosinophils % 1.8 % (0.00-10.9); Hematocrit 33.7 VOL% (42.0-52.0); Immature Granulocytes % 0.4 %; Immature Granulocytes Absolute 0.04 #; Lymphocytes # 2.7 10*3/uL (1.4-4.0); Mean Corpuscular HGB Conc 32.6 GM/DL (32-36); Mean Corpuscular Volume 90.8 FL (87-102); Mean Platelet Volume 8.8 FL (9.6-12.0); Monocytes % 4.9 % (1.7-12.7); Neutrophils % 62.3 % (38.7-73.9); Platelet Count 393 T/CUMM (130-400); Red Blood Count 3.71 MC/CUMM (3.8-5.5); Red Cell Distribution Width 14.8 % (9.3-17.3)
[2020-09-30] MEDS: FONDAPARINUX 2.5 MG/0.5 ML SYRINGE SUBCUT SCH (06:14)
[2020-09-30] MEDS ORDERED: LORazepam 0.5 MG TABLET PO ONE (09:00)
[2020-09-30] MEDS: CYPROHEPTADINE 4 MG TABLET PO SCH ×3 (10:41→22:21)
[2020-09-30] MEDS: METOPROLOL TARTRATE 50 MG TABLET PO SCH ×2 (10:41→22:26)
[2020-09-30] MEDS: MULTIVITAMIN (BEROCCA) TABLET PO SCH (10:41)
[2020-09-30] MEDS: BRIMONIDINE 0.2% OPH SOLN 5 ML BOTTLE BOTH EYES SCH ×3 (10:41→22:20)
[2020-09-30] MEDS: DOCUSATE SODIUM 100 MG CAPSULE PO SCH ×2 (10:41→22:22)
[2020-09-30] MEDS: DORZOLAMIDE/TIMOLOL OPH SOLN 10 ML BOTTLE BOTH EYES SCH ×3 (10:41→22:23)
[2020-09-30] MEDS: PANTOPRAZOLE 40 MG TABLET PO SCH (10:41)
[2020-09-30] MEDS: MAGNESIUM OXIDE 400 MG TABLET PO SCH ×2 (10:42→22:26)
[2020-09-30] MEDS: GABAPENTIN 300 MG CAPSULE PO SCH ×2 (10:42→22:26)
[2020-09-30] MEDS: gemfibroziL 600 MG TABLET PO SCH (10:42)
[2020-09-30] MEDS: allopurinoL 100 MG TABLET PO SCH (10:42)
[2020-09-30] MEDS: levETIRAcetam 500 MG TABLET PO SCH ×2 (10:42→22:23)
[2020-09-30] MEDS: LATANOPROST 0.005% OPH SOLN 2.5 ML BOTTLE BOTH EYES SCH (22:27)
[2020-10-01] MEDS: OXACILLIN 2,000 MG in SODIUM CHLORIDE 0.9% 100 ML IV SCH ×4 (00:30→17:56)
[2020-10-01] MEDS: FONDAPARINUX 2.5 MG/0.5 ML SYRINGE SUBCUT SCH (06:30)
[2020-10-01] MEDS: allopurinoL 100 MG TABLET PO SCH (11:03)
[2020-10-01] MEDS: BRIMONIDINE 0.2% OPH SOLN 5 ML BOTTLE BOTH EYES SCH ×3 (11:03→22:05)
[2020-10-01] MEDS: DORZOLAMIDE/TIMOLOL OPH SOLN 10 ML BOTTLE BOTH EYES SCH ×3 (11:03→21:57)
[2020-10-01] MEDS: GABAPENTIN 300 MG CAPSULE PO SCH ×2 (11:03→21:57)
[2020-10-01] MEDS: MULTIVITAMIN (BEROCCA) TABLET PO SCH (11:04)
[2020-10-01] MEDS: PANTOPRAZOLE 40 MG TABLET PO SCH (11:04)
[2020-10-01] MEDS: CYPROHEPTADINE 4 MG TABLET PO SCH ×3 (11:04→21:57)
[2020-10-01] MEDS: gemfibroziL 600 MG TABLET PO SCH (11:04)
[2020-10-01] MEDS: DOCUSATE SODIUM 100 MG CAPSULE PO SCH ×2 (11:04→21:57)
[2020-10-01] MEDS: levETIRAcetam 500 MG TABLET PO SCH ×2 (11:04→21:57)
[2020-10-01] MEDS: MAGNESIUM OXIDE 400 MG TABLET PO SCH ×2 (11:04→21:57)
[2020-10-01] MEDS: METOPROLOL TARTRATE 50 MG TABLET PO SCH ×2 (11:05→21:57)
[2020-10-01] MEDS: LATANOPROST 0.005% OPH SOLN 2.5 ML BOTTLE BOTH EYES SCH (21:57)
[2020-10-02] MEDS: OXACILLIN 2,000 MG in SODIUM CHLORIDE 0.9% 100 ML IV SCH ×4 (01:05→17:43)
[2020-10-02] MEDS: FONDAPARINUX 2.5 MG/0.5 ML SYRINGE SUBCUT SCH (06:16)
[2020-10-02 07:25] LABS: Basophils % 0.5 % (0.0-0.8); Eosinophils # 0.1 10*3/uL (0.0-0.87); Eosinophils % 1.7 % (0.00-10.9); Hematocrit 32.7 VOL% (42.0-52.0); Hemoglobin 10.5 GM/DL (14.0-18.0); Immature Granulocytes % 0.2 %; Immature Granulocytes Absolute 0.02 #; Lymphocytes # 2.7 10*3/uL (1.4-4.0); Mean Corpuscular HGB Conc 32.1 GM/DL (32-36); Mean Corpuscular Volume 92.6 FL (87-102); Mean Platelet Volume 8.5 FL (9.6-12.0); Monocytes % 4.9 % (1.7-12.7); Neutrophils % 60.7 % (38.7-73.9); Platelet Count 429 T/CUMM (130-400); Red Blood Count 3.53 MC/CUMM (3.8-5.5); White Blood Count 8.4 T/CUMM (4-12)
[2020-10-02 07:52] LABS: Anisocytosis 1+; Eosinophils 3 % (0-10); Lymphocytes 30 % (20-55); Platelet Estimate Normal; Segmented Neutrophils 61 % (50-85); Smudge Cells Few; Total Cells Counted 100
[2020-10-02 07:53] LABS: Macrocytosis Slight
[2020-10-02] MEDS: BRIMONIDINE 0.2% OPH SOLN 5 ML BOTTLE BOTH EYES SCH ×3 (09:38→22:33)
[2020-10-02] MEDS: DOCUSATE SODIUM 100 MG CAPSULE PO SCH ×2 (09:38→22:29)
[2020-10-02] MEDS: DORZOLAMIDE/TIMOLOL OPH SOLN 10 ML BOTTLE BOTH EYES SCH ×3 (09:38→22:34)
[2020-10-02] MEDS: MULTIVITAMIN (BEROCCA) TABLET PO SCH (09:38)
[2020-10-02] MEDS: levETIRAcetam 500 MG TABLET PO SCH ×2 (09:38→22:32)
[2020-10-02] MEDS: METOPROLOL TARTRATE 50 MG TABLET PO SCH ×2 (09:39→22:31)
[2020-10-02] MEDS: GABAPENTIN 300 MG CAPSULE PO SCH ×2 (09:39→22:32)
[2020-10-02] MEDS: CYPROHEPTADINE 4 MG TABLET PO SCH ×3 (09:39→22:29)
[2020-10-02] MEDS: PANTOPRAZOLE 40 MG TABLET PO SCH (09:39)
[2020-10-02] MEDS: MAGNESIUM OXIDE 400 MG TABLET PO SCH ×2 (09:39→22:31)
[2020-10-02] MEDS: gemfibroziL 600 MG TABLET PO SCH (09:39)
[2020-10-02] MEDS: allopurinoL 100 MG TABLET PO SCH (09:39)
[2020-10-02] MEDS: LATANOPROST 0.005% OPH SOLN 2.5 ML BOTTLE BOTH EYES SCH (22:33)
[2020-10-03] MEDS: OXACILLIN 2,000 MG in SODIUM CHLORIDE 0.9% 100 ML IV SCH ×5 (00:21→23:53)
[2020-10-03] MEDS: FONDAPARINUX 2.5 MG/0.5 ML SYRINGE SUBCUT SCH (05:50)
[2020-10-03] MEDS: levETIRAcetam 500 MG TABLET PO SCH ×2 (10:37→22:14)
[2020-10-03] MEDS: MULTIVITAMIN (BEROCCA) TABLET PO SCH (10:37)
[2020-10-03] MEDS: CYPROHEPTADINE 4 MG TABLET PO SCH ×3 (10:37→22:11)
[2020-10-03] MEDS: MAGNESIUM OXIDE 400 MG TABLET PO SCH ×2 (10:37→22:11)
[2020-10-03] MEDS: allopurinoL 100 MG TABLET PO SCH (10:38)
[2020-10-03] MEDS: gemfibroziL 600 MG TABLET PO SCH (10:38)
[2020-10-03] MEDS: GABAPENTIN 300 MG CAPSULE PO SCH ×2 (10:38→22:13)
[2020-10-03] MEDS: DOCUSATE SODIUM 100 MG CAPSULE PO SCH ×2 (10:38→22:13)
[2020-10-03] MEDS: PANTOPRAZOLE 40 MG TABLET PO SCH (10:38)
[2020-10-03] MEDS: METOPROLOL TARTRATE 50 MG TABLET PO SCH ×2 (10:38→22:14)
[2020-10-03] MEDS: DORZOLAMIDE/TIMOLOL OPH SOLN 10 ML BOTTLE BOTH EYES SCH ×3 (10:42→22:19)
[2020-10-03] MEDS: BRIMONIDINE 0.2% OPH SOLN 5 ML BOTTLE BOTH EYES SCH ×3 (10:43→22:19)
[2020-10-03] MEDS: LATANOPROST 0.005% OPH SOLN 2.5 ML BOTTLE BOTH EYES SCH (22:19)
[2020-10-04] MEDS: OXACILLIN 2,000 MG in SODIUM CHLORIDE 0.9% 100 ML IV SCH ×3 (06:43→17:45)
[2020-10-04] MEDS: FONDAPARINUX 2.5 MG/0.5 ML SYRINGE SUBCUT SCH (06:46)
[2020-10-04] MEDS: GABAPENTIN 300 MG CAPSULE PO SCH ×2 (08:44→20:33)
[2020-10-04] MEDS: METOPROLOL TARTRATE 50 MG TABLET PO SCH ×2 (08:44→20:33)
[2020-10-04] MEDS: CYPROHEPTADINE 4 MG TABLET PO SCH ×3 (08:44→20:33)
[2020-10-04] MEDS: levETIRAcetam 500 MG TABLET PO SCH ×2 (08:44→20:33)
[2020-10-04] MEDS: MAGNESIUM OXIDE 400 MG TABLET PO SCH ×2 (08:44→20:33)
[2020-10-04] MEDS: gemfibroziL 600 MG TABLET PO SCH (08:45)
[2020-10-04] MEDS: PANTOPRAZOLE 40 MG TABLET PO SCH (08:45)
[2020-10-04] MEDS: DOCUSATE SODIUM 100 MG CAPSULE PO SCH ×2 (08:45→20:33)
[2020-10-04] MEDS: DORZOLAMIDE/TIMOLOL OPH SOLN 10 ML BOTTLE BOTH EYES SCH ×3 (08:45→20:34)
[2020-10-04] MEDS: allopurinoL 100 MG TABLET PO SCH (08:45)
[2020-10-04] MEDS: MULTIVITAMIN (BEROCCA) TABLET PO SCH (08:45)
[2020-10-04] MEDS: BRIMONIDINE 0.2% OPH SOLN 5 ML BOTTLE BOTH EYES SCH ×3 (08:45→20:34)
[2020-10-04] MEDS: LATANOPROST 0.005% OPH SOLN 2.5 ML BOTTLE BOTH EYES SCH (20:34)
[2020-10-05] MEDS: OXACILLIN 2,000 MG in SODIUM CHLORIDE 0.9% 100 ML IV SCH ×3 (00:26→12:32)
[2020-10-05] MEDS: FONDAPARINUX 2.5 MG/0.5 ML SYRINGE SUBCUT SCH (05:46)
[2020-10-05] MEDS: DOCUSATE SODIUM 100 MG CAPSULE PO SCH (09:17)
[2020-10-05] MEDS: gemfibroziL 600 MG TABLET PO SCH (09:17)
[2020-10-05] MEDS: MAGNESIUM OXIDE 400 MG TABLET PO SCH (09:18)
[2020-10-05] MEDS: allopurinoL 100 MG TABLET PO SCH (09:18)
[2020-10-05] MEDS: MULTIVITAMIN (BEROCCA) TABLET PO SCH (09:18)
[2020-10-05] MEDS: PANTOPRAZOLE 40 MG TABLET PO SCH (09:18)
[2020-10-05] MEDS: METOPROLOL TARTRATE 50 MG TABLET PO SCH (09:19)
[2020-10-05] MEDS: GABAPENTIN 300 MG CAPSULE PO SCH (09:19)
[2020-10-05] MEDS: levETIRAcetam 500 MG TABLET PO SCH (09:19)
[2020-10-05] MEDS: CYPROHEPTADINE 4 MG TABLET PO SCH (09:19)
[2020-10-05] MEDS: DORZOLAMIDE/TIMOLOL OPH SOLN 10 ML BOTTLE BOTH EYES SCH (09:20)
[2020-10-05] MEDS: BRIMONIDINE 0.2% OPH SOLN 5 ML BOTTLE BOTH EYES SCH (09:20)
[2020-10-05 11:38] VITALS: BP 160/86
== END 2020-10-05 16:00 | DRG 470 ==
LOC: N.OR 05:46 → N.SDSINP 05:51 → N.3E 16:25
PROVIDERS: ADMIT Orthopaedic Surgery; ATTEND Orthopaedic Surgery

== ENCOUNTER 2020-10-12 11:07 | Inpatient (IN) ==
[2020-10-12 09:54] LABS: Basophils # 0.1 10*3/uL (0.0-0.2); Basophils % 0.9 % (0.0-0.8); Eosinophils # 0.6 10*3/uL (0.0-0.87); Hematocrit 24.4 VOL% (42.0-52.0); Hemoglobin 7.6 GM/DL (14.0-18.0); Immature Granulocytes % 0.5 %; Immature Granulocytes Absolute 0.04 #; Lymphocytes # 2.9 10*3/uL (1.4-4.0); Lymphocytes % 36.5 % (21.2-54.2); Mean Corpuscular HGB Conc 31.1 GM/DL (32-36); Mean Corpuscular Volume 94.6 FL (87-102); Mean Platelet Volume 9.1 FL (9.6-12.0); Monocytes % 5.2 % (1.7-12.7); Neutrophils % 49.9 % (38.7-73.9); Platelet Count 498 T/CUMM (130-400); Red Blood Count 2.58 MC/CUMM (3.8-5.5); Red Cell Distribution Width 15.7 % (9.3-17.3); White Blood Count 7.8 T/CUMM (4-12)
[2020-10-12 10:05] LABS: PT Patient Result 10.9 SECS (9.8-11.9); Partial Thromboplastin Time 34.2 SECS (23.9-33.8)
[2020-10-12 10:14] LABS: Eosinophils 3 % (0-10); Lymphocytes 30 % (20-55); Platelet Estimate Adequate; Segmented Neutrophils 61 % (50-85); Total Cells Counted 100
[2020-10-12 10:15] LABS: Atypical Lymphocytes Few; Hypochromasia 2+; Microcytosis 1+
[2020-10-12 10:16] LABS: Alanine Aminotransferase < 6 U/L (16-61); Albumin 1.5 G/DL (3.4-5.0); Alkaline Phosphatase 148 U/L (45-117); Aspartate Amino Transferase 18 U/L (0-37); Bilirubin,Total < 0.39 MG/DL (0.2-1.0); Blood Urea Nitrogen 9 MG/DL (7-18); Calcium 8.2 MG/DL (8.5-10.1); Carbon Dioxide 25 MMOL/L (21-32); Glucose 79 MG/DL (74-106); Osmolality,Calculated 283.8 MOS/KG (273-304); Potassium 4.1 MMOL/L (3.5-5.1); Sodium 144 MMOL/L (136-145); Total Protein 6.7 G/DL (6.4-8.3)
[2020-10-12 10:17] LABS: Estimated Glom Filtration Rate 0 ML/MIN
[~2020-10-12 11:07] MED LIST: BACITRACIN OINT 0.9 GM PACK TOP ONE
[2020-10-12] MEDS ORDERED: fentaNYL 100 MCG/2 ML VIAL ONE ×2 (11:28→12:33)
[2020-10-12] MEDS ORDERED: MIDAZOLAM 2 MG/2 ML VIAL ONE (11:29)
[2020-10-12] MEDS ORDERED: propofoL 200 MG/20 ML VIAL IV ONE (11:29)
[2020-10-12] MEDS ORDERED: ONDANSETRON 4 MG/2 ML VIAL ONE (11:29)
[2020-10-12] MEDS ORDERED: SEVOFLURANE 1 UNIT/15 MINUTE INH ONE (11:29)
[2020-10-12] MEDS ORDERED: ROCURONIUM 50 MG/5 ML VIAL IV ONE (11:29)
[2020-10-12] MEDS ORDERED: LIDOCAINE 2% 5 ML VIAL ONE (11:29)
[2020-10-12] MEDS ORDERED: PHENYLEPHRINE 0.5% NASAL SPRAY 15 ML BOTTLE BOTH NARES ONE (11:32)
[2020-10-12] MEDS ORDERED: ALBUTEROL 2.5 MG/3 ML NEB RESP TX ONE (11:37)
[2020-10-12] MEDS ORDERED: PHENYLEPHRINE 1 MG/10 ML SYRINGE IV ONE ×2 (11:48→12:44)
[2020-10-12] MEDS ORDERED: MORPHINE 4 MG/1 ML VIAL IV PRN ×2 (11:48)
[2020-10-12] MEDS ORDERED: MAGNESIUM HYDROXIDE SUSP 30 ML UDCUP PO PRN (11:48)
[2020-10-12] MEDS ORDERED: ONDANSETRON 4 MG/2 ML VIAL IV PRN (11:48)
[2020-10-12] MEDS ORDERED: FUROSEMIDE 20 MG/2 ML VIAL IV PRN (11:52)
[2020-10-12] MEDS ORDERED: SODIUM CHLORIDE 0.9% 1,000 ML IV PRN (11:52)
[2020-10-12] MEDS ORDERED: DALBAVANCIN IV SCH (12:00)
[2020-10-12] MEDS ORDERED: LACTATED RINGERS 1,000 ML IV SCH (12:00)
[2020-10-12] MEDS ORDERED: OXACILLIN 2,000 MG VIAL IV SCH (12:00)
[2020-10-12] MEDS ORDERED: TRANEXAMIC ACID 1,000 MG/10 ML VIAL ONE (12:36)
[2020-10-12] MEDS ORDERED: SUGAMMADEX 200 MG/2 ML VIAL IV ONE (12:57)
[2020-10-12] MEDS ORDERED: LABETALOL 20 MG/4 ML SYRINGE IV ONE ×2 (13:25→13:46)
[2020-10-12] MEDS ORDERED: LABETALOL 100 MG/20 ML VIAL IV ONE (13:27)
[2020-10-12] MEDS ORDERED: HYDROmorphone 2 MG/1 ML VIAL ONE (13:42)
[2020-10-12] MEDS: HYDROmorphone 2 MG/1 ML VIAL IV PRN ×4 (13:45→14:09)
[2020-10-12 15:31] LABS: Hemoglobin 10.3 GM/DL (14.0-18.0)
[2020-10-12] MEDS: CYPROHEPTADINE 4 MG TABLET PO SCH ×2 (16:03→21:21)
[2020-10-12] MEDS: OXACILLIN 2,000 MG in SODIUM CHLORIDE 0.9% 100 ML IV SCH ×2 (16:03→21:19)
[2020-10-12] MEDS: LACTATED RINGERS 1,000 ML IV SCH (16:03)
[2020-10-12] MEDS: BRIMONIDINE 0.2% OPH SOLN 5 ML BOTTLE BOTH EYES SCH ×2 (16:04→21:23)
[2020-10-12] MEDS: DORZOLAMIDE/TIMOLOL OPH SOLN 10 ML BOTTLE BOTH EYES SCH ×2 (16:04→21:24)
[2020-10-12] MEDS ORDERED: LATANOPROST 0.005% OPH SOLN 2.5 ML BOTTLE BOTH EYES SCH (21:00)
[2020-10-12] MEDS: DOCUSATE SODIUM 100 MG CAPSULE PO SCH (21:20)
[2020-10-12] MEDS: levETIRAcetam 500 MG TABLET PO SCH (21:20)
[2020-10-12] MEDS: METOPROLOL TARTRATE 50 MG TABLET PO SCH (21:21)
[2020-10-12] MEDS: MAGNESIUM OXIDE 400 MG TABLET PO SCH (21:21)
[2020-10-12] MEDS: GABAPENTIN 300 MG CAPSULE PO SCH (21:22)
[2020-10-13] MEDS: OXACILLIN 2,000 MG in SODIUM CHLORIDE 0.9% 100 ML IV SCH ×3 (01:50→14:55)
[2020-10-13] MEDS: LACTATED RINGERS 1,000 ML IV SCH ×2 (05:38→08:00)
[2020-10-13 05:56] LABS: Basophils # 0.1 10*3/uL (0.0-0.2); Basophils % 1.1 % (0.0-0.8); Eosinophils # 0.4 10*3/uL (0.0-0.87); Eosinophils % 5.4 % (0.00-10.9); Hematocrit 26.2 VOL% (42.0-52.0); Hemoglobin 8.5 GM/DL (14.0-18.0); Immature Granulocytes % 0.7 %; Immature Granulocytes Absolute 0.05 #; Lymphocytes # 2.4 10*3/uL (1.4-4.0); Mean Corpuscular HGB Conc 32.4 GM/DL (32-36); Mean Corpuscular Volume 90.7 FL (87-102); Mean Platelet Volume 8.8 FL (9.6-12.0); Monocytes % 5.6 % (1.7-12.7); Neutrophils % 53.2 % (38.7-73.9); Platelet Count 387 T/CUMM (130-400); Red Blood Count 2.89 MC/CUMM (3.8-5.5)
[2020-10-13 06:11] LABS: Calcium 7.8 MG/DL (8.5-10.1); Potassium 3.7 MMOL/L (3.5-5.1)
[2020-10-13 07:24] LABS: Hypochromasia 2+; Microcytosis 1+; Platelet Estimate Normal
[2020-10-13] MEDS ORDERED: PANTOPRAZOLE 40 MG TABLET PO SCH (09:00)
[2020-10-13] MEDS ORDERED: gemfibroziL 600 MG TABLET PO SCH (09:00)
[2020-10-13] MEDS ORDERED: ASPIRIN 325 MG TABLET PO SCH (09:00)
[2020-10-13] MEDS ORDERED: allopurinoL 100 MG TABLET PO SCH (09:00)
[2020-10-13] MEDS: DOCUSATE SODIUM 100 MG CAPSULE PO SCH (09:50)
[2020-10-13] MEDS: levETIRAcetam 500 MG TABLET PO SCH (09:50)
[2020-10-13] MEDS: MAGNESIUM OXIDE 400 MG TABLET PO SCH (09:51)
[2020-10-13] MEDS: CYPROHEPTADINE 4 MG TABLET PO SCH ×2 (09:51→15:30)
[2020-10-13] MEDS: METOPROLOL TARTRATE 50 MG TABLET PO SCH (09:51)
[2020-10-13] MEDS: GABAPENTIN 300 MG CAPSULE PO SCH (09:51)
[2020-10-13] MEDS: DORZOLAMIDE/TIMOLOL OPH SOLN 10 ML BOTTLE BOTH EYES SCH ×2 (09:59→15:32)
[2020-10-13] MEDS: BRIMONIDINE 0.2% OPH SOLN 5 ML BOTTLE BOTH EYES SCH ×2 (09:59→15:32)
[2020-10-13 16:42] VITALS: BP 133/90
== END 2020-10-13 17:15 | DRG 464 ==
LOC: N.OR 11:07 → N.SDSINP 11:09 → N.3E 11:48
PROVIDERS: ADMIT Orthopaedic Surgery; ATTEND Orthopaedic Surgery

== ENCOUNTER 2020-11-10 06:03 | Inpatient (IN) ==
[2020-11-10] MEDS ORDERED: OXACILLIN 2,000 MG in SODIUM CHLORIDE 0.9% 100 ML IV ONE (06:30)
[2020-11-10] MEDS ORDERED: LACTATED RINGERS 1,000 ML IV SCH ×2 (06:30→09:00)
[2020-11-10] MEDS ORDERED: MAGNESIUM HYDROXIDE SUSP 30 ML UDCUP PO PRN ×2 (08:35→08:38)
[2020-11-10] MEDS ORDERED: MORPHINE 4 MG/1 ML VIAL IV PRN (08:35)
[2020-11-10] MEDS ORDERED: ONDANSETRON 4 MG/2 ML VIAL IV PRN (08:35)
[2020-11-10] MEDS ORDERED: BISACODYL 10 MG SUPP RECTAL PRN (08:38)
[2020-11-10] MEDS ORDERED: ACETAMINOPHEN 325 MG TABLET PO PRN (08:38)
[2020-11-10] MEDS ORDERED: ONDANSETRON 4 MG TABLET PO PRN (08:38)
[2020-11-10] MEDS ORDERED: cloNIDine 0.1 MG TABLET PO PRN (08:38)
[2020-11-10] MEDS ORDERED: BISACODYL 5 MG PO PRN (08:38)
[2020-11-10] MEDS ORDERED: OXACILLIN 2,000 MG VIAL IV SCH (09:00)
[2020-11-10] MEDS ORDERED: hydrALAZINE 20 MG/1 ML VIAL ONE (09:01)
[2020-11-10] MEDS ORDERED: hydrALAZINE 20 MG/1 ML VIAL IV ONE (09:05)
[2020-11-10] MEDS: levETIRAcetam 500 MG TABLET PO SCH ×2 (11:59→21:17)
[2020-11-10] MEDS: allopurinoL 100 MG TABLET PO SCH (11:59)
[2020-11-10] MEDS: BRIMONIDINE 0.2% OPH SOLN 5 ML BOTTLE BOTH EYES SCH ×5 (12:00→21:25)
[2020-11-10] MEDS: MAGNESIUM OXIDE 400 MG TABLET PO SCH ×2 (12:00→21:18)
[2020-11-10] MEDS: CYPROHEPTADINE 4 MG TABLET PO SCH ×3 (12:00→21:43)
[2020-11-10] MEDS: METOPROLOL TARTRATE 50 MG TABLET PO SCH ×2 (12:01→21:18)
[2020-11-10] MEDS: GABAPENTIN 300 MG CAPSULE PO SCH ×2 (12:01→21:17)
[2020-11-10] MEDS: PANTOPRAZOLE 40 MG TABLET PO SCH (12:01)
[2020-11-10] MEDS: ASPIRIN 325 MG TABLET PO SCH (12:01)
[2020-11-10] MEDS: OXACILLIN 2,000 MG in SODIUM CHLORIDE 0.9% 100 ML IV SCH ×3 (12:19→23:40)
[2020-11-10] MEDS ORDERED: TUBERCULIN SKIN TEST 0.1 ML SYRINGE INTRADERM ONE (15:39)
[2020-11-10 17:09] LABS: Basophils # 0.1 10*3/uL (0.0-0.2); Basophils % 0.8 % (0.0-0.8); Eosinophils # 1.8 10*3/uL (0.0-0.87); Eosinophils % 23.4 % (0.00-10.9); Hematocrit 23.2 VOL% (42.0-52.0); Hemoglobin 7.2 GM/DL (14.0-18.0); Immature Granulocytes % 0.3 %; Immature Granulocytes Absolute 0.02 #; Lymphocytes # 2.4 10*3/uL (1.4-4.0); Lymphocytes % 31.7 % (21.2-54.2); Mean Corpuscular Volume 93.2 FL (87-102); Mean Platelet Volume 9.4 FL (9.6-12.0); Monocytes % 5.7 % (1.7-12.7); Neutrophils % 38.1 % (38.7-73.9); Platelet Count 321 T/CUMM (130-400); Red Blood Count 2.49 MC/CUMM (3.8-5.5); White Blood Count 7.5 T/CUMM (4-12)
[2020-11-10 17:32] LABS: Calcium 7.9 MG/DL (8.5-10.1); Potassium 2.9 MMOL/L (3.5-5.1)
[2020-11-10 18:05] LABS: Eosinophils 29 % (0-10); Lymphocytes 32 % (20-55); Segmented Neutrophils 36 % (50-85); Total Cells Counted 100
[2020-11-10 18:06] LABS: Anisocytosis 4+; Hypochromasia 4+; Microcytosis 2+; Ovalocytes 1+; Schistocytes 1+
[2020-11-10] MEDS: POTASSIUM CHLORIDE 20 MEQ TABLET PO PRN ×3 (19:14→23:20)
[2020-11-10] MEDS: LATANOPROST 0.005% OPH SOLN 2.5 ML BOTTLE BOTH EYES SCH (21:42)
[2020-11-11] MEDS: POTASSIUM CHLORIDE 20 MEQ TABLET PO PRN (01:21)
[2020-11-11 05:57] LABS: Basophils # 0.1 10*3/uL (0.0-0.2); Eosinophils # 2.3 10*3/uL (0.0-0.87); Eosinophils % 23.6 % (0.00-10.9); Hematocrit 27.2 VOL% (42.0-52.0); Hemoglobin 8.6 GM/DL (14.0-18.0); Immature Granulocytes % 0.3 %; Immature Granulocytes Absolute 0.03 #; Lymphocytes # 3.3 10*3/uL (1.4-4.0); Lymphocytes % 34.7 % (21.2-54.2); Mean Corpuscular HGB Conc 31.6 GM/DL (32-36); Mean Corpuscular Volume 93.8 FL (87-102); Mean Platelet Volume 9.3 FL (9.6-12.0); Monocytes % 6.5 % (1.7-12.7); Neutrophils % 33.9 % (38.7-73.9); Platelet Count 323 T/CUMM (130-400); Red Cell Distribution Width 15.5 % (9.3-17.3); White Blood Count 9.6 T/CUMM (4-12)
[2020-11-11] MEDS: OXACILLIN 2,000 MG in SODIUM CHLORIDE 0.9% 100 ML IV SCH ×4 (06:05→23:19)
[2020-11-11 06:25] LABS: Calcium 8.7 MG/DL (8.5-10.1); Potassium 4.4 MMOL/L (3.5-5.1)
[2020-11-11 06:33] LABS: Eosinophils 28 % (0-10); Hypochromasia Slight; Lymphocytes 36 % (20-55); Platelet Estimate Normal; Segmented Neutrophils 32 % (50-85); Total Cells Counted 100
[2020-11-11] MEDS: amLODIPine 5 MG TABLET PO SCH (08:51)
[2020-11-11] MEDS: allopurinoL 100 MG TABLET PO SCH (08:51)
[2020-11-11] MEDS: CYPROHEPTADINE 4 MG TABLET PO SCH ×3 (08:51→21:11)
[2020-11-11] MEDS: METOPROLOL TARTRATE 50 MG TABLET PO SCH ×2 (08:51→21:12)
[2020-11-11] MEDS: ASPIRIN 325 MG TABLET PO SCH (08:51)
[2020-11-11] MEDS: levETIRAcetam 500 MG TABLET PO SCH ×2 (08:51→21:11)
[2020-11-11] MEDS: BRIMONIDINE 0.2% OPH SOLN 5 ML BOTTLE BOTH EYES SCH ×3 (08:52→21:13)
[2020-11-11] MEDS: GABAPENTIN 300 MG CAPSULE PO SCH ×2 (08:52→21:11)
[2020-11-11] MEDS: PANTOPRAZOLE 40 MG TABLET PO SCH (08:52)
[2020-11-11] MEDS: MAGNESIUM OXIDE 400 MG TABLET PO SCH ×2 (08:52→21:11)
[2020-11-11] MEDS: LATANOPROST 0.005% OPH SOLN 2.5 ML BOTTLE BOTH EYES SCH (21:13)
[2020-11-12] MEDS: OXACILLIN 2,000 MG in SODIUM CHLORIDE 0.9% 100 ML IV SCH ×3 (05:28→17:40)
[2020-11-12] MEDS ORDERED: MAGNESIUM SULF RIDER 2 GM in PREMIX 1 EACH IV PRN (07:40)
[2020-11-12] MEDS ORDERED: MAGNESIUM SULF RIDER 4 GM in PREMIX 1 EACH IV PRN (07:40)
[2020-11-12 08:40] LABS: Basophils # 0.1 10*3/uL (0.0-0.2); Basophils % 0.7 % (0.0-0.8); Eosinophils # 1.8 10*3/uL (0.0-0.87); Eosinophils % 22.4 % (0.00-10.9); Hemoglobin 7.8 GM/DL (14.0-18.0); Immature Granulocytes % 0.4 %; Immature Granulocytes Absolute 0.03 #; Lymphocytes # 2.5 10*3/uL (1.4-4.0); Lymphocytes % 31.3 % (21.2-54.2); Mean Corpuscular HGB Conc 31.2 GM/DL (32-36); Mean Platelet Volume 9.5 FL (9.6-12.0); Monocytes % 5.9 % (1.7-12.7); Neutrophils % 39.3 % (38.7-73.9); Platelet Count 319 T/CUMM (130-400); Red Blood Count 2.66 MC/CUMM (3.8-5.5); Red Cell Distribution Width 15.5 % (9.3-17.3); White Blood Count 8.1 T/CUMM (4-12)
[2020-11-12 08:57] LABS: Calcium 8.7 MG/DL (8.5-10.1)
[2020-11-12] MEDS: METOPROLOL TARTRATE 50 MG TABLET PO SCH ×2 (08:59→20:00)
[2020-11-12] MEDS: ASPIRIN 325 MG TABLET PO SCH (09:00)
[2020-11-12] MEDS: PANTOPRAZOLE 40 MG TABLET PO SCH (09:00)
[2020-11-12] MEDS: MAGNESIUM OXIDE 400 MG TABLET PO SCH ×2 (09:00→20:00)
[2020-11-12] MEDS: amLODIPine 5 MG TABLET PO SCH (09:00)
[2020-11-12] MEDS: levETIRAcetam 500 MG TABLET PO SCH ×2 (09:01→20:00)
[2020-11-12] MEDS: CYPROHEPTADINE 4 MG TABLET PO SCH ×3 (09:01→20:00)
[2020-11-12] MEDS: allopurinoL 100 MG TABLET PO SCH (09:02)
[2020-11-12] MEDS: GABAPENTIN 300 MG CAPSULE PO SCH ×2 (09:02→20:00)
[2020-11-12] MEDS: BRIMONIDINE 0.2% OPH SOLN 5 ML BOTTLE BOTH EYES SCH ×3 (09:02→19:59)
[2020-11-12] MEDS: MULTIVITAMIN (CENTRUM) TABLET PO SCH (09:02)
[2020-11-12 09:06] LABS: Eosinophils 30 % (0-10); Hypochromasia 2+; Lymphocytes 27 % (20-55); Microcytosis 1+; Platelet Estimate Adequate; Segmented Neutrophils 39 % (50-85); Total Cells Counted 100
[2020-11-12] MEDS: LATANOPROST 0.005% OPH SOLN 2.5 ML BOTTLE BOTH EYES SCH (20:00)
[2020-11-13] MEDS: OXACILLIN 2,000 MG in SODIUM CHLORIDE 0.9% 100 ML IV SCH ×5 (01:37→23:41)
[2020-11-13 07:51] LABS: Basophils # 0.1 10*3/uL (0.0-0.2); Eosinophils # 1.8 10*3/uL (0.0-0.87); Eosinophils % 25.1 % (0.00-10.9); Hematocrit 22.4 VOL% (42.0-52.0); Immature Granulocytes % 0.3 %; Immature Granulocytes Absolute 0.02 #; Lymphocytes # 2.3 10*3/uL (1.4-4.0); Lymphocytes % 32.1 % (21.2-54.2); Mean Corpuscular HGB Conc 31.3 GM/DL (32-36); Mean Corpuscular Volume 92.6 FL (87-102); Mean Platelet Volume 9.7 FL (9.6-12.0); Monocytes % 7.6 % (1.7-12.7); Neutrophils % 33.9 % (38.7-73.9); Platelet Count 303 T/CUMM (130-400); Red Blood Count 2.42 MC/CUMM (3.8-5.5); Red Cell Distribution Width 15.3 % (9.3-17.3); White Blood Count 7.2 T/CUMM (4-12)
[2020-11-13 08:12] LABS: Calcium 8.3 MG/DL (8.5-10.1); Osmolality,Calculated 282.3 MOS/KG (273-304); Potassium 3.4 MMOL/L (3.5-5.1)
[2020-11-13 08:16] LABS: Eosinophils 23 % (0-10); Lymphocytes 32 % (20-55); Platelet Estimate Adequate; Segmented Neutrophils 39 % (50-85); Total Cells Counted 100
[2020-11-13 08:17] LABS: Hypochromasia 2+; Microcytosis 1+
[2020-11-13 08:18] LABS: % Iron Saturation 14.3 % (18-50); Ferritin 432.2 ng/ml (26-388)
[2020-11-13 08:28] LABS: Folate 11.3 NG/ML (5.38-24.0)
[2020-11-13] MEDS: amLODIPine 5 MG TABLET PO SCH (09:43)
[2020-11-13] MEDS: levETIRAcetam 500 MG TABLET PO SCH ×2 (09:43→21:15)
[2020-11-13] MEDS: MAGNESIUM OXIDE 400 MG TABLET PO SCH ×2 (09:43→21:15)
[2020-11-13] MEDS: GABAPENTIN 300 MG CAPSULE PO SCH ×2 (09:43→21:16)
[2020-11-13] MEDS: allopurinoL 100 MG TABLET PO SCH (09:43)
[2020-11-13] MEDS: MULTIVITAMIN (CENTRUM) TABLET PO SCH (09:43)
[2020-11-13] MEDS: BRIMONIDINE 0.2% OPH SOLN 5 ML BOTTLE BOTH EYES SCH ×3 (09:43→21:15)
[2020-11-13] MEDS: PANTOPRAZOLE 40 MG TABLET PO SCH (09:43)
[2020-11-13] MEDS: METOPROLOL TARTRATE 50 MG TABLET PO SCH ×2 (09:43→21:16)
[2020-11-13] MEDS: APIXABAN 2.5 MG TABLET PO SCH ×2 (09:43→21:15)
[2020-11-13] MEDS: CYPROHEPTADINE 4 MG TABLET PO SCH ×3 (09:43→21:15)
[2020-11-13] MEDS ORDERED: POTASSIUM CHLORIDE 20 MEQ TABLET PO ONE (14:00)
[2020-11-13] MEDS: LATANOPROST 0.005% OPH SOLN 2.5 ML BOTTLE BOTH EYES SCH (21:15)
[2020-11-14] MEDS: OXACILLIN 2,000 MG in SODIUM CHLORIDE 0.9% 100 ML IV SCH (05:49)
[2020-11-14 06:03] LABS: Basophils # 0.1 10*3/uL (0.0-0.2); Basophils % 1.1 % (0.0-0.8); Eosinophils # 1.7 10*3/uL (0.0-0.87); Eosinophils % 23.3 % (0.00-10.9); Hematocrit 23.4 VOL% (42.0-52.0); Hemoglobin 7.7 GM/DL (14.0-18.0); Immature Granulocytes % 0.3 %; Immature Granulocytes Absolute 0.02 #; Lymphocytes # 2.7 10*3/uL (1.4-4.0); Lymphocytes % 37.4 % (21.2-54.2); Mean Corpuscular HGB Conc 32.9 GM/DL (32-36); Mean Corpuscular Volume 91.4 FL (87-102); Mean Platelet Volume 9.4 FL (9.6-12.0); Monocytes % 6.2 % (1.7-12.7); Neutrophils % 31.7 % (38.7-73.9); Platelet Count 285 T/CUMM (130-400); Red Blood Count 2.56 MC/CUMM (3.8-5.5); Red Cell Distribution Width 15.2 % (9.3-17.3); White Blood Count 7.1 T/CUMM (4-12)
[2020-11-14 06:25] LABS: Eosinophils 20 % (0-10); Lymphocytes 36 % (20-55); Platelet Estimate Adequate; Segmented Neutrophils 41 % (50-85); Total Cells Counted 100
[2020-11-14 06:26] LABS: Calcium 8.8 MG/DL (8.5-10.1); Potassium 3.8 MMOL/L (3.5-5.1)
[2020-11-14 06:26] LABS: Hypochromasia 2+; Microcytosis 1+
[2020-11-14] MEDS ORDERED: VANCOMYCIN INJ 750 MG in SODIUM CHLORIDE 0.9% 250 ML IV SCH (07:00)
[2020-11-14] MEDS: MULTIVITAMIN (CENTRUM) TABLET PO SCH (08:42)
[2020-11-14] MEDS: MAGNESIUM OXIDE 400 MG TABLET PO SCH ×2 (08:42→20:11)
[2020-11-14] MEDS: GABAPENTIN 300 MG CAPSULE PO SCH ×2 (08:42→20:11)
[2020-11-14] MEDS: BRIMONIDINE 0.2% OPH SOLN 5 ML BOTTLE BOTH EYES SCH ×3 (08:42→20:10)
[2020-11-14] MEDS: PANTOPRAZOLE 40 MG TABLET PO SCH (08:42)
[2020-11-14] MEDS: APIXABAN 2.5 MG TABLET PO SCH ×2 (08:42→20:11)
[2020-11-14] MEDS: levETIRAcetam 500 MG TABLET PO SCH ×2 (08:42→20:11)
[2020-11-14] MEDS: allopurinoL 100 MG TABLET PO SCH (08:43)
[2020-11-14] MEDS: METOPROLOL TARTRATE 50 MG TABLET PO SCH ×2 (08:43→20:12)
[2020-11-14] MEDS: CYPROHEPTADINE 4 MG TABLET PO SCH ×3 (08:43→20:11)
[2020-11-14] MEDS: amLODIPine 5 MG TABLET PO SCH (08:48)
[2020-11-14] MEDS: VANCOMYCIN INJ 1,000 MG in SODIUM CHLORIDE 0.9% 250 ML IV SCH ×2 (09:20→20:09)
[2020-11-14] MEDS: LATANOPROST 0.005% OPH SOLN 2.5 ML BOTTLE BOTH EYES SCH (20:10)
[2020-11-14] MEDS: ZALEPLON 5 MG CAPSULE PO PRN (20:11)
[2020-11-15 04:35] LABS: Basophils # 0.1 10*3/uL (0.0-0.2); Basophils % 1.1 % (0.0-0.8); Eosinophils # 1.6 10*3/uL (0.0-0.87); Eosinophils % 20.2 % (0.00-10.9); Hemoglobin 7.2 GM/DL (14.0-18.0); Immature Granulocytes % 0.4 %; Immature Granulocytes Absolute 0.03 #; Lymphocytes # 2.9 10*3/uL (1.4-4.0); Lymphocytes % 35.7 % (21.2-54.2); Mean Corpuscular HGB Conc 31.3 GM/DL (32-36); Mean Corpuscular Volume 93.1 FL (87-102); Mean Platelet Volume 9.7 FL (9.6-12.0); Monocytes % 7.1 % (1.7-12.7); Neutrophils % 35.5 % (38.7-73.9); Platelet Count 301 T/CUMM (130-400); Red Blood Count 2.47 MC/CUMM (3.8-5.5); Red Cell Distribution Width 15.1 % (9.3-17.3)
[2020-11-15 04:56] LABS: Calcium 8.4 MG/DL (8.5-10.1); Osmolality,Calculated 286.8 MOS/KG (273-304); Potassium 3.7 MMOL/L (3.5-5.1)
[2020-11-15 04:59] LABS: Eosinophils 19 % (0-10); Hypochromasia 2+; Lymphocytes 40 % (20-55); Microcytosis 1+; Platelet Estimate Adequate; Segmented Neutrophils 35 % (50-85); Total Cells Counted 100
[2020-11-15] MEDS: METOPROLOL TARTRATE 50 MG TABLET PO SCH ×2 (09:29→20:03)
[2020-11-15] MEDS: amLODIPine 5 MG TABLET PO SCH (09:29)
[2020-11-15] MEDS: BRIMONIDINE 0.2% OPH SOLN 5 ML BOTTLE BOTH EYES SCH ×3 (09:29→20:02)
[2020-11-15] MEDS: MULTIVITAMIN (CENTRUM) TABLET PO SCH (09:30)
[2020-11-15] MEDS: GABAPENTIN 300 MG CAPSULE PO SCH ×2 (09:30→20:03)
[2020-11-15] MEDS: APIXABAN 2.5 MG TABLET PO SCH ×2 (09:30→20:04)
[2020-11-15] MEDS: PANTOPRAZOLE 40 MG TABLET PO SCH (09:30)
[2020-11-15] MEDS: levETIRAcetam 500 MG TABLET PO SCH ×2 (09:30→20:03)
[2020-11-15] MEDS: CYPROHEPTADINE 4 MG TABLET PO SCH ×3 (09:30→20:04)
[2020-11-15] MEDS: MAGNESIUM OXIDE 400 MG TABLET PO SCH ×2 (09:30→20:03)
[2020-11-15] MEDS: allopurinoL 100 MG TABLET PO SCH (09:30)
[2020-11-15] MEDS: VANCOMYCIN INJ 1,000 MG in SODIUM CHLORIDE 0.9% 250 ML IV SCH ×2 (09:31→20:02)
[2020-11-15] MEDS: LATANOPROST 0.005% OPH SOLN 2.5 ML BOTTLE BOTH EYES SCH (20:02)
[2020-11-15] MEDS: ZALEPLON 5 MG CAPSULE PO PRN (20:03)
[2020-11-16 06:46] LABS: Basophils # 0.1 10*3/uL (0.0-0.2); Basophils % 0.8 % (0.0-0.8); Eosinophils # 0.9 10*3/uL (0.0-0.87); Eosinophils % 14.9 % (0.00-10.9); Hematocrit 24.1 VOL% (42.0-52.0); Hemoglobin 7.9 GM/DL (14.0-18.0); Immature Granulocytes % 0.3 %; Immature Granulocytes Absolute 0.02 #; Lymphocytes # 2.5 10*3/uL (1.4-4.0); Lymphocytes % 40.8 % (21.2-54.2); Mean Corpuscular HGB Conc 32.8 GM/DL (32-36); Mean Corpuscular Volume 89.9 FL (87-102); Mean Platelet Volume 9.3 FL (9.6-12.0); Monocytes % 5.8 % (1.7-12.7); Neutrophils % 37.4 % (38.7-73.9); Platelet Count 319 T/CUMM (130-400); Red Blood Count 2.68 MC/CUMM (3.8-5.5); Red Cell Distribution Width 15.1 % (9.3-17.3); White Blood Count 6.2 T/CUMM (4-12)
[2020-11-16 07:09] LABS: Calcium 8.7 MG/DL (8.5-10.1); Osmolality,Calculated 282.1 MOS/KG (273-304); Potassium 3.5 MMOL/L (3.5-5.1)
[2020-11-16 07:12] LABS: Eosinophils 15 % (0-10); Hypochromasia 1+; Lymphocytes 38 % (20-55); Platelet Estimate Adequate; Segmented Neutrophils 44 % (50-85); Total Cells Counted 100
[2020-11-16 07:13] LABS: Microcytosis 1+
[2020-11-16] MEDS: amLODIPine 5 MG TABLET PO SCH (08:49)
[2020-11-16] MEDS: BRIMONIDINE 0.2% OPH SOLN 5 ML BOTTLE BOTH EYES SCH ×3 (08:49→20:26)
[2020-11-16] MEDS: PANTOPRAZOLE 40 MG TABLET PO SCH (08:49)
[2020-11-16] MEDS: MULTIVITAMIN (CENTRUM) TABLET PO SCH (08:50)
[2020-11-16] MEDS: MAGNESIUM OXIDE 400 MG TABLET PO SCH ×2 (08:50→20:26)
[2020-11-16] MEDS: METOPROLOL TARTRATE 50 MG TABLET PO SCH ×2 (08:50→20:26)
[2020-11-16] MEDS: GABAPENTIN 300 MG CAPSULE PO SCH ×2 (08:50→20:26)
[2020-11-16] MEDS: allopurinoL 100 MG TABLET PO SCH (08:50)
[2020-11-16] MEDS: CYPROHEPTADINE 4 MG TABLET PO SCH ×3 (08:50→20:26)
[2020-11-16] MEDS: levETIRAcetam 500 MG TABLET PO SCH ×2 (08:50→20:26)
[2020-11-16] MEDS: APIXABAN 2.5 MG TABLET PO SCH ×2 (08:51→20:26)
[2020-11-16] MEDS: VANCOMYCIN INJ 750 MG in SODIUM CHLORIDE 0.9% 250 ML IV SCH ×2 (08:57→21:47)
[2020-11-16] MEDS: ZALEPLON 5 MG CAPSULE PO PRN (20:26)
[2020-11-16] MEDS: LATANOPROST 0.005% OPH SOLN 2.5 ML BOTTLE BOTH EYES SCH (20:30)
[2020-11-17] MEDS: VANCOMYCIN INJ 750 MG in SODIUM CHLORIDE 0.9% 250 ML IV SCH ×2 (04:35→09:19)
[2020-11-17] MEDS: allopurinoL 100 MG TABLET PO SCH (09:11)
[2020-11-17] MEDS: amLODIPine 5 MG TABLET PO SCH (09:12)
[2020-11-17] MEDS: GABAPENTIN 300 MG CAPSULE PO SCH (09:12)
[2020-11-17] MEDS: METOPROLOL TARTRATE 50 MG TABLET PO SCH (09:12)
[2020-11-17] MEDS: MULTIVITAMIN (CENTRUM) TABLET PO SCH (09:12)
[2020-11-17] MEDS: CYPROHEPTADINE 4 MG TABLET PO SCH ×2 (09:13→14:05)
[2020-11-17] MEDS: levETIRAcetam 500 MG TABLET PO SCH (09:13)
[2020-11-17] MEDS: MAGNESIUM OXIDE 400 MG TABLET PO SCH (09:13)
[2020-11-17] MEDS: PANTOPRAZOLE 40 MG TABLET PO SCH (09:13)
[2020-11-17] MEDS: APIXABAN 2.5 MG TABLET PO SCH (09:13)
[2020-11-17] MEDS: BRIMONIDINE 0.2% OPH SOLN 5 ML BOTTLE BOTH EYES SCH ×2 (09:16→14:05)
[2020-11-17] MEDS ORDERED: LINEZOLID 600 MG TABLET PO SCH (11:30)
[2020-11-17 12:04] VITALS: BP 152/78
== END 2020-11-17 16:00 | DRG 498 ==
LOC: N.OR 06:03 → N.SDSINP 06:04 → N.3E 10:16
PROVIDERS: ADMIT Orthopaedic Surgery; ATTEND Orthopaedic Surgery